=== PATIENT | female | born 1995 | race Caucasian/White ===

== ENCOUNTER 2016-12-05 20:10 | Emergency (ER) | payer BC ==
[2016-12-05] MEDS ORDERED: SODIUM CHLORIDE 0.9% 1,000 ML IV STA (20:44)
--- NOTE | 2016-12-05 20:57 | ED ---
General Adult HPI - General Chief complaint: Arrhythmia/Palpitations Stated complaint: Chest Pain Time Seen by Provider: 12/05/16 20:27 Source: patient, RN notes reviewed, old records reviewed Mode of arrival: wheelchair Limitations: no limitations - History of Present Illness Initial comments: This is a 21-year-old female the ER for evaluation of elevated heart rate. Patient has history of SVT, is on medication for heart rate. Verapamil. Patient has been taking medication as prescribed, recent history of anorexia or just decreased appetite. No nausea vomiting or diarrhea. No fevers. No significant medical history no recent drug use or abuse, no change in medications. At this time patient is asymptomatic. Patient did feel lightheaded and dizzy during episode. - Related Data Home Medications Medication Instructions Recorded Confirmed Medroxyprogesterone Acetate 150 mg IM Q90D 12/05/16 12/05/16 [Depo-Provera] Sertraline HCl [Zoloft] 25 mg PO DAILY 12/05/16 12/05/16 Verapamil [Isoptin] 40 mg PO BID 12/05/16 12/05/16 Allergies Allergy/AdvReac Type Severity Reaction Status Date / Time cefixime [From Suprax] Allergy Rash/Hives Verified 12/05/16 20:34 Review of Systems ROS Statement: Those systems with pertinent positive or pertinent negative responses have been documented in the HPI. ROS Other: All systems not noted in ROS Statement are negative. Past Medical History Past Medical History: No Reported History Additional Past Medical History / Comment(s): tachycardia History of Any Multi-Drug Resistant Organisms: None Reported Past Surgical History: No Surgical Hx Reported Past Anesthesia/Blood Transfusion Reactions: No Reported Reaction Past Psychological History: Anxiety Smoking Status: Never smoker Past Alcohol Use History: Rare Past Drug Use History: None Reported - Past Family History Mother Family Medical History: No Reported History Additional Family Medical History / Comment(s): Family history of depression General Exam Limitations: no limitations General appearance: alert, in no apparent distress, anxious Head exam: Present: atraumatic, normocephalic, normal inspection Eye exam: Present: normal appearance, PERRL, EOMI. Absent: scleral icterus, conjunctival injection, periorbital swelling ENT exam: Present: normal exam, mucous membranes moist Neck exam: Present: normal inspection. Absent: tenderness, meningismus, lymphadenopathy Respiratory exam: Present: normal lung sounds bilaterally. Absent: respiratory distress, wheezes, rales, rhonchi, stridor Cardiovascular Exam: Present: regular rate, normal rhythm, normal heart sounds. Absent: systolic murmur, diastolic murmur, rubs, gallop, clicks GI/Abdominal exam: Present: soft, normal bowel sounds. Absent: distended, tenderness, guarding, rebound, rigid Extremities exam: Present: normal inspection, full ROM, normal capillary refill. Absent: tenderness, pedal edema, joint swelling, calf tenderness Back exam: Present: normal inspection Neurological exam: Present: alert, oriented X3, CN II-XII intact Psychiatric exam: Present: normal affect, normal mood Skin exam: Present: warm, dry, intact, normal color. Absent: rash Course Vital Signs 12/05/16 20:17 Temperature 97.9 F Pulse Rate 95 Respiratory 18 Rate Blood Pressure 136/71 O2 Sat by Pulse 100 Oximetry - Reevaluation(s) Reevaluation #1: 12/05/16 22:12 Patient currently without abnormal heart rate or symptoms EKG Findings - EKG Comments: EKG Findings:: EKG shows normal rhythm rate of 72, AR 116, QRS 90, QTC 400 Medical Decision Making - Medical Decision Making 19 female here for evaluation of possible episode of SVT, patient is a symptomatically felt ER stay, will continue to take verapamil and follow-up with cardiology this week - Lab Data Result diagrams: 12/05/16 21:20 12/05/16 21:20 Lab Results 12/05/16 12/05/16 12/05/16 Range/Units 21:20 21:20 21:20 WBC 6.1 (3.8-10.6) k/uL RBC 5.08 (3.80-5.40) m/uL Hgb 14.2 (11.4-16.0) gm/dL Hct 43.8 (34.0-46.0) % MCV 86.2 (80.0-100.0) fL MCH 28.0 (25.0-35.0) pg MCHC 32.5 (31.0-37.0) g/dL RDW 12.9 (11.5-15.5) % Plt Count 244 (150-450) k/uL Neutrophils % 59 % Lymphocytes % 27 % Monocytes % 7 % Eosinophils % 4 % Basophils % 1 % Neutrophils # 3.6 (1.3-7.7) k/uL Lymphocytes # 1.7 (1.0-4.8) k/uL Monocytes # 0.4 (0-1.0) k/uL Eosinophils # 0.3 (0-0.7) k/uL Basophils # 0.0 (0-0.2) k/uL Sodium 144 (137-145) mmol/L Potassium 3.8 (3.5-5.1) mmol/L Chloride 104 (98-107) mmol/L Carbon Dioxide 25 (22-30) mmol/L Anion Gap 15 mmol/L BUN 14 (7-17) mg/dL Creatinine 0.73 (0.52-1.04) mg/dL Est GFR (MDRD) Af Amer >60 (>60 ml/min/1.73 sqM) Est GFR (MDRD) Non-Af >60 (>60 ml/min/1.73 sqM) Glucose 77 (74-99) mg/dL Calcium 9.6 (8.4-10.2) mg/dL Phosphorus 4.2 (2.5-4.5) mg/dL Magnesium 1.8 (1.6-2.3) mg/dL Total Bilirubin 0.6 (0.2-1.3) mg/dL AST 18 (14-36) U/L ALT 28 (9-52) U/L Alkaline Phosphatase 68 (38-126) U/L Total Protein 7.5 (6.3-8.2) g/dL Albumin 4.7 (3.5-5.0) g/dL Urine Color Urine Appearance (Clear) Urine pH (5.0-8.0) Ur Specific [place] (1.001-1.035) Urine Protein (Negative) Urine Glucose (UA) (Negative) Urine Ketones (Negative) Urine Blood (Negative) Urine Nitrate (Negative) Urine Bilirubin (Negative) Urine Urobilinogen (<2.0) mg/dL Ur Leukocyte Esterase (Negative) Urine HCG, Qual Not Detected (Not Detectd) 12/05/16 Range/Units 21:20 WBC (3.8-10.6) k/uL RBC (3.80-5.40) m/uL Hgb (11.4-16.0) gm/dL Hct (34.0-46.0) % MCV (80.0-100.0) fL MCH (25.0-35.0) pg MCHC (31.0-37.0) g/dL RDW (11.5-15.5) % Plt Count (150-450) k/uL Neutrophils % % Lymphocytes % % Monocytes % % Eosinophils % % Basophils % % Neutrophils # (1.3-7.7) k/uL Lymphocytes # (1.0-4.8) k/uL Monocytes # (0-1.0) k/uL Eosinophils # (0-0.7) k/uL Basophils # (0-0.2) k/uL Sodium (137-145) mmol/L Potassium (3.5-5.1) mmol/L Chloride (98-107) mmol/L Carbon Dioxide (22-30) mmol/L Anion Gap mmol/L BUN (7-17) mg/dL Creatinine (0.52-1.04) mg/dL Est GFR (MDRD) Af Amer (>60 ml/min/1.73 sqM) Est GFR (MDRD) Non-Af (>60 ml/min/1.73 sqM) Glucose (74-99) mg/dL Calcium (8.4-10.2) mg/dL Phosphorus (2.5-4.5) mg/dL Magnesium (1.6-2.3) mg/dL Total Bilirubin (0.2-1.3) mg/dL AST (14-36) U/L ALT (9-52) U/L Alkaline Phosphatase (38-126) U/L Total Protein (6.3-8.2) g/dL Albumin (3.5-5.0) g/dL Urine Color Light Yellow Urine Appearance Clear (Clear) Urine pH 6.0 (5.0-8.0) Ur Specific [place] 1.008 (1.001-1.035) Urine Protein Negative (Negative) Urine Glucose (UA) Negative (Negative) Urine Ketones Negative (Negative) Urine Blood Negative (Negative) Urine Nitrate Negative (Negative) Urine Bilirubin Negative (Negative) Urine Urobilinogen 2.0 (<2.0) mg/dL Ur Leukocyte Esterase Negative (Negative) Urine HCG, Qual (Not Detectd) Disposition Clinical Impression: Arrhythmia, Supraventricular tachycardia Disposition: HOME SELF-CARE Condition: Good Instructions: Supraventricular Tachycardia (ED) Referrals: Swati Key III, MD [Primary Care Provider] - 1-2 days
[2016-12-05 21:43] LABS: Basophils % (A) 1 %; CH 28.7; CHCM 33.4; Eosinophils # (A) 0.3 k/uL (0-0.7); Eosinophils % (A) 4 %; HCT 43.8 % (34.0-46.0); HDW 2.45; HGB 14.2 gm/dL (11.4-16.0); Luc # (Auto) 0.16; Luc % (Auto) 3; Lymphocytes # (A) 1.7 k/uL (1.0-4.8); Lymphocytes % (A) 27 %; MCHC 32.5 g/dL (31.0-37.0); MCV 86.2 fL (80.0-100.0); Monocytes # (A) 0.4 k/uL (0-1.0); Monocytes % (A) 7 %; Neutrophils # (A) 3.6 k/uL (1.3-7.7); Neutrophils % (A) 59 %; RBC 5.08 m/uL (3.80-5.40); RDW 12.9 % (11.5-15.5); WBC 6.1 k/uL (3.8-10.6); WBC (Perox) 6.29
[2016-12-05 21:44] LABS: Appearance,Urine Clear (Clear); Bilirubin,Urine Negative (Negative); Glucose,Urine (UA) Negative (Negative); Ketones,Urine Negative (Negative); Leukocyte Esterase,Urine Negative (Negative); Nitrite,Urine Negative (Negative); Protein,Urine Negative (Negative); Specific Gravity,Urine 1.008 (1.001-1.035); UA Billing (MACRO vs. MICRO) CHEM
[2016-12-05 21:52] LABS: ALT 28 U/L (9-52); AST 18 U/L (14-36); Alkaline Phosphatase 68 U/L (38-126); Anion Gap 15 mmol/L; Blood Urea Nitrogen 14 mg/dL (7-17); Calcium 9.6 mg/dL (8.4-10.2); Carbon Dioxide 25 mmol/L (22-30); Chloride 104 mmol/L (98-107); Glucose 77 mg/dL (74-99); Magnesium 1.8 mg/dL (1.6-2.3); Non-African American GFR(MDRD) >60 (>60 ml/min/1.73 sqM); Phosphorous 4.2 mg/dL (2.5-4.5); Potassium 3.8 mmol/L (3.5-5.1); Sodium 144 mmol/L (137-145); Total Bilirubin 0.6 mg/dL (0.2-1.3); Total Protein 7.5 g/dL (6.3-8.2)
[2016-12-05 22:08] LABS: Creatine Kinase 59 U/L (30-135)
[2016-12-05 22:20] LABS: Creatine Kinase MB 0.2 ng/mL (0.0-2.4); Troponin I <0.012 ng/mL (0.000-0.034)
[2016-12-05 22:34] VITALS: BP 114/60; PULSE 79; RESP 16; TEMP 98
== END 2016-12-05 22:37 | disposition home or self-care (01) ==
LOC: EC 20:10
DX: I47.1 Supraventricular tachycardia (principal); F41.9 Anxiety disorder, unspecified; Z79.899 Other long term (current) drug therapy; Z88.8 Allergy status to other drugs, medicaments and biological substances
CPT/HCPCS: 36415; 80053; 81003; 81025; 82550; 82553; 83735; 84100; 84443; 84484; 85025; 87086; 93005; 99285

== ENCOUNTER 2017-01-20 15:17 | Emergency (ER) | payer BC ==
[2017-01-20 16:13] VITALS: RESP 20
[2017-01-20] MEDS ORDERED: IBUPROFEN 600 MG TAB PO STA (16:19)
[2017-01-20] MEDS ORDERED: ACETAMINOPHEN TAB 500 MG TAB PO STA (16:19)
[2017-01-20] MEDS ORDERED: ACETAMINOPHEN ORAL SUSP 160 MG/5 ML CUP PO STA (16:40)
[2017-01-20 17:52] VITALS: BP 131/71; PULSE 120
--- NOTE | 2017-01-20 18:23 | ED ---
Fever HPI - General Chief Complaint: Fever Stated Complaint: Chest Pain,Flu Time Seen by Provider: 01/20/17 16:19 Source: patient, family Mode of arrival: wheelchair Limitations: no limitations - History of Present Illness Initial Comments: Patient is a 21-year-old female presenting with flulike symptoms. Daughter recently diagnosed with the flu. Patient complaining of cough, congestion, chest congestion, sore throat for the past day. Patient took aspirin at 11:00. Fever was subjective. Denies nausea, vomiting, diarrhea, abdominal pain. Denies dysuria. Denies neck stiffness. - Related Data Home Medications Medication Instructions Recorded Confirmed Medroxyprogesterone Acetate 150 mg IM Q90D 12/05/16 01/20/17 [Depo-Provera] Previous Rx's Medication Instructions Recorded Oseltamivir [Tamiflu] 75 mg PO Q12HR #10 cap 01/20/17 Allergies Allergy/AdvReac Type Severity Reaction Status Date / Time cefixime [From Suprax] Allergy Rash/Hives Verified 01/20/17 16:28 Review of Systems ROS Statement: Those systems with pertinent positive or pertinent negative responses have been documented in the HPI. Constitutional: +fever and no chills. HENT: +congestion, no rhinorrhea and +sore throat. Eyes: No discharge and no redness. Respiratory: +cough and no shortness of breath. Cardiovascular: No chest pain and no palpitations. Gastrointestinal: No nausea, no vomiting, no abdominal pain and no diarrhea. Genitourinary: No dysuria and no hematuria. Musculoskeletal: No back pain and + myalgias. Skin: No pallor and no rash. Neurological: No dizziness and No headaches. ROS Other: All systems not noted in ROS Statement are negative. Past Medical History Past Medical History: No Reported History Additional Past Medical History / Comment(s): tachycardia History of Any Multi-Drug Resistant Organisms: None Reported Past Surgical History: No Surgical Hx Reported Past Anesthesia/Blood Transfusion Reactions: No Reported Reaction Past Psychological History: Anxiety Smoking Status: Never smoker Past Alcohol Use History: Rare Past Drug Use History: None Reported - Past Family History Mother Family Medical History: No Reported History Additional Family Medical History / Comment(s): Family history of depression General Exam - General Exam Comments Initial Comments: Constitutional: Patient appears well-developed and well-nourished. Mild distress and warm to touch. Head: Normocephalic and atraumatic. Eyes: Conjunctivae and EOM are normal. Right eye exhibits no discharge. Left eye exhibits no discharge. No scleral icterus. Ears: Bilateral erythematous TMs with normal landmarks Throat: Erythematous without tonsillar exudates Neck: Neck supple. No rigidity. Full range of motion Cardiovascular: Tachycardic with history of tachycardia. No murmur heard. Pulmonary/Chest: Effort normal and breath sounds normal. No respiratory distress. No wheezes. Abdominal: Soft. No distension. There is no tenderness. There is no rebound and no guarding. Musculoskeletal: Normal range of motion. No edema or tenderness. Neurological: Patient alert and oriented to person, place, and time. Skin: Skin is warm and dry. Not diaphoretic. Nursing notes and vitals reviewed. Limitations: no limitations Course Vital Signs 01/20/17 01/20/17 01/20/17 16:08 17:40 18:35 Temperature 105.7 F H 102.6 F H 101.1 F H Pulse Rate 129 H 120 H Respiratory 20 20 Rate Blood Pressure 145/81 131/71 O2 Sat by Pulse 99 Oximetry - Reevaluation(s) Reevaluation #1: Patient presented with a fever of 105F and exposure of the flu for which she was given Tylenol and Motrin. Fever progressively came down. Patient well- appearing and updated on influenza A positive Medical Decision Making - Medical Decision Making Patient is a 21-year-old female presenting with fever and exposure to the flu. Patient febrile here for which she was given Tylenol Motrin. Fever came down. Influenza A positive. Patient will be treated with Tamiflu. Prior to discharge , patient was resting comfortably in bed. Course of stay improved. Fever improved. Pain improved. Discussed physical exam and diagnostic tests with patient. Questions answered and patient is agreeable to discharge with close follow up with Primary Care Physician. Instructed to return to Emergency Department if symptoms worsen. - Lab Data Lab Results 01/20/17 Range/Units 16:36 Influenza Type A RNA Detected H (Not Detectd) Influenza Type B (PCR) Not Detected (Not Detectd) Disposition Clinical Impression: Influenza A Disposition: HOME SELF-CARE Condition: Good Instructions: Fever in Adults (ED), Influenza (ED) Prescriptions: Oseltamivir [Tamiflu] 75 mg PO Q12HR #10 cap Referrals: Swati Key III, MD [Primary Care Provider] - 1-2 days
[2017-01-20 18:36] VITALS: TEMP 101.1
== END 2017-01-20 18:36 | disposition home or self-care (01) ==
LOC: EC 15:17
DX: J09.X2 Influenza due to identified novel influenza A virus with other respiratory manifestations (principal); Z88.1 Allergy status to other antibiotic agents
CPT/HCPCS: 87502; 99283

== ENCOUNTER 2017-03-28 06:21 | Day surgery (SDC) | payer BC ==
[2017-03-26 14:47] VITALS: BMI 22.3
[2017-03-28] MEDS ORDERED: SODIUM CHLORIDE 0.9% 1,000 ML IV SCH (06:27)
[2017-03-28 06:56] LABS: Basophils % (A) 0 %; CH 29.3; CHCM 33.8; Eosinophils # (A) 0.4 k/uL (0-0.7); Eosinophils % (A) 6 %; HCT 42.2 % (34.0-46.0); HGB 14.2 gm/dL (11.4-16.0); Luc # (Auto) 0.17; Luc % (Auto) 3; Lymphocytes % (A) 16 %; MCH 29.2 pg (25.0-35.0); MCHC 33.6 g/dL (31.0-37.0); MCV 87.1 fL (80.0-100.0); Mean Platelet Volume 6.5; Monocytes # (A) 0.4 k/uL (0-1.0); Monocytes % (A) 6 %; Neutrophils # (A) 4.2 k/uL (1.3-7.7); Neutrophils % (A) 69 %; RBC 4.84 m/uL (3.80-5.40); RDW 13.2 % (11.5-15.5); WBC 6.1 k/uL (3.8-10.6); WBC (Perox) 6.07
[2017-03-28 07:06] LABS: Anion Gap 12 mmol/L; Blood Urea Nitrogen 12 mg/dL (7-17); Calcium 9.2 mg/dL (8.4-10.2); Carbon Dioxide 20 mmol/L (22-30); Chloride 110 mmol/L (98-107); Glucose 93 mg/dL (74-99); Non-African American GFR(MDRD) >60 (>60 ml/min/1.73 sqM); Potassium 3.9 mmol/L (3.5-5.1); Sodium 142 mmol/L (137-145)
[2017-03-28] MEDS ORDERED: IV FLUID CONTINUATION 1,000 ML IV ONE (07:22)
[2017-03-28] MEDS ORDERED: PHENYLEPHRINE-0.9% NACL SYG 1 MG/10 ML SYRINGE ONE (07:22)
[2017-03-28] MEDS ORDERED: ONDANSETRON 4 MG/2 ML VIAL ONE (07:22)
[2017-03-28] MEDS ORDERED: WATER FOR INJECTION, STERILE 10 ML VIAL IV ONE (07:22)
[2017-03-28] MEDS ORDERED: fentaNYL (PF) 50 MCG/ML 2 ML AMP ONE (07:22)
[2017-03-28] MEDS ORDERED: diphenhydrAMINE 50 MG/ML 1 ML VIAL ONE (07:22)
[2017-03-28] MEDS ORDERED: MIDAZOLAM 2 MG/2 ML VIAL ONE (07:22)
[2017-03-28] MEDS ORDERED: DEXAMETHASONE SOD PHOSPHATE 10 MG/ML 1 ML VIAL ONE (07:22)
[2017-03-28] MEDS ORDERED: PROPOFOL 10 MG/ML 20 ML VIAL IV ONE (07:22)
[2017-03-28] MEDS ORDERED: HYDROmorphone (PF) 1 MG/ML ONE (07:22)
[2017-03-28] MEDS ORDERED: ISOPROTERENOL 250 MCG/1.25 ML SYR IV ONE (07:22)
[2017-03-28] MEDS ORDERED: IODIXANOL 320 MG/ML 100 ML IV ONE (08:13)
[2017-03-28] MEDS ORDERED: LIDOCAINE 2% INJ 20 MG/ML SQ ONE ×2 (08:20→08:21)
[2017-03-28] MEDS ORDERED: ACETAMINOPHEN IV (For NPO) 1,000 MG in EMPTY BAG 1 BAG IVPB ONE (09:57)
[2017-03-28] MEDS ORDERED: ACETAMINOPHEN TAB 325 MG TAB PO PRN (09:57)
--- NOTE | 2017-03-28 10:51 | CE ---
DATE OF SERVICE: Caitlin Menendez is a 21-year-old female who complains of recurrent dizziness ( ) palpitations. She feels warm, nauseous and sweaty at this time. She did not respond to Verapamil and therefore was brought to the EP lab for a diagnostic EP study and possible radiofrequency ablation for SVT. SVT has been documented in the past (sinus tachycardia versus atrial tachycardia). Patient brought to the EP lab in a fasting state. Written informed consent was obtained prior to the procedure. The left and right groins were prepped and draped as per protocol. Four venous sheaths were placed, two on each side. Diagnostic catheters were placed in the right heart (atrial catheter, HIS bundle catheter, RV catheter and coronary sinus catheter). The sinus cycle length was ( ) ms, AK interval was 129 ms, QRS 104 ms, QT 408 ms, AH interval 41 ms, HP 35 ms. Sinus node recovery times at 600, 500, and 400 ms were 929, 1025 and 988 ms corresponding sinus node recovery times within normal limits. AV node Wenckebach block 360 ms, VA Wenckebach block 420 ms. The ventricular extrastimulation was performed in ( ). Extrastimulation is performed at the high right atrium, coronary sinus and the right ventricle and there is no evidence SVT, AV node Wenckebach block was 380 ms with coronary sinus pacing, Isuprel was given wide open and then at 2 mcg, AV node Wenckebach block noted at 220 ms, VA Wenckebach block at 260 ms, AV node ERP 400/less than 180 and VA ERP 360/less than 180 and for the coronary sinus 360/less than 180. No slow pathway conduction, no evidence of excessive pathway conduction, no SVT induced. Double extrastimuli from the coronary sinus, high right atrium and the ventricle performed. No SVT was induced. There are occasional single echo beats but no sustained SVT was induced, even nonsustained SVT was not noted. Burst stimulation was performed from all 3 sites and no arrhythmia was induced, right bundle aberrancy was noted with atrial pacing on Isuprel. Isuprel was stopped and atrial ventricular extrastimulation continued and also from the coronary sinus. From the coronary sinus, single echo beats are noted with extrastimuli but no SVT and no nonsustained SVT noted. No atrial tachycardia was induced. All catheters were removed at the end of the procedure. IMPRESSION: Diagnostic EP study reveals normal sinus function, normal atrioventricular node function and absence of any excessive pathway conduction. Slow pathway conduction noted with extrastimulation during Isuprel recovery, but only single echo beats were noted. No sustained SVT induced, no ventricular arrhythmias induced. No nonsustained VT induced. 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 SUGGEST: Stop verapamil, increase fluid and salt intake, induce strengthening training of the lower extremities and consider a therapeutic trial with Florinef 0.1 mg p.o. daily for 3 months and reassess thereafter.
--- NOTE | 2017-03-28 11:00 | LTR ---
March 28, 2017 RE: Caitlin Menendez N Dear Rocael; I had the pleasure of seeing Caitlin Menendez in electrophysiology followup. Caitlin underwent a diagnostic EP study, which did not reveal any sustained arrhythmias. In her history, she stated that she feels dizzy and feels that her heart starts to race and at that time becomes nauseous and when she throws up, the episodes stop. However, I could not find any AV node dependent SVT nor any other atrial tachycardia. It is quite likely that she is having vasovagal presyncope and she feels the preceding sinus tachycardia. Therefore, I would suggest a therapeutic trial of Florinef for 3 months to see if her condition improves, in addition to increasing fluid and salt intake and strength training of the lower extremities. Thank you for entrusting me with the care of your patient. Warm regards. Sincerely, REBEL KILGORE MD
[2017-03-28] MEDS: FLUDROCORTISONE 0.1 MG TAB PO SCH (20:32)
--- NOTE | 2017-03-29 08:04 | P.DS ---
Providers Attending physician: Dexter Enrique Primary care physician: [facility] Course: Patient is doing well post EP study Groin is healed well no hematoma no tenderness Heart sounds are normal Breath sounds are normal Blood pressures are normal normal respirations afebrile normal heart rate no arrhythmias Impression Recurrent symptoms of palpitations associated with nausea and sweating Tilt table test last year which showed normal heart rate and blood pressure response to upright tilting Diagnostic EP study which showed normal sinus node function, normal AV node function, no accessory pathway conduction. Slow pathway conduction was noted but only single echo beats were induced with Isuprel recovery No SVT inducible No atrial tachycardia inducible No ventricular tachycardia either sustained or nonsustained inducible We have documented sinus tachycardia and Nonsustained VT during monitoring, in the past Her symptoms are suggestive of mild vasovagal phenomena without any significant drop in blood pressure. She complains of a pounding and palpitation in her heart nauseous sweating. I would treat her with Florinef 0.1 mg by mouth daily for 3 months. She will increase her fluid and salt intake and strength and her lower extremity muscles, resistance training and weight training However we also documented an episode of nonsustained VT that may not be related to her symptoms Most importantly I reviewed all her twelve-lead ECGs This morning her twelve-lead ECG shows a terminal deflection in the QRS in lead V1 Looking back in all her twelve-lead ECGs this finding is consistent in lead V1 There is very subtle evidence of this in lead V2 and may be in lead V6 and one of the ECGs but the finding in lead V1 is very consistent and appears as a sharp artifact at the very end of the QRS in V1 Suggest Exercise stress test to maximum capacity in view of this ECG finding and the documentation of nonsustained ventricular tachycardia I will perform this test in a few weeks once a groin heals up Consider cardiac MRI to evaluate the right ventricle to look for right ventricular myocardial abnormalities Patient Condition at Discharge: Stable Plan - Discharge Summary New Discharge Prescriptions: Fludrocortisone [Florinef] 0.1 mg PO DAILY #1 tablet Discharge Medication List Medroxyprogesterone Acetate [Depo-Provera] 150 mg IM Q90D 12/05/16 [History] ALPRAZolam [Xanax] 0.25 mg PO DAILY PRN 03/26/17 [History] Fludrocortisone [Florinef] 0.1 mg PO DAILY #1 tablet 03/28/17 [Rx] Activity/Diet/Wound Care/Special Instructions: Post EP study - Ablation instructions 1. Keep access sites dry for 2 days. 2. No heavy lifting or straining for 2 days. 3. Avoid bending the hips repeatedly for 2 days. 4. You may go up and down stairs slowly Call if the following is noted 1. Bleeding, increasing swelling or pain at the access sites. 2. Increasing chest discomfort, especially upon taking a deep breath. 3. Increasing shortness of breath, at rest or with exertion. 4. Undue cough / phlegm 5. Difficulty or pain while swallowing. 6. Pain or change in color in the extremities. 7. Fever, chills, rigors. 8. Increasing headache or neurologic symptoms. 9. Dizziness, fainting, palpitations Discharge Disposition: HOME SELF-CARE
--- NOTE | 2017-03-29 08:08 | P.PN ---
Progress Note - Text Patient is doing well post EP study Groin is healed well no hematoma no tenderness Heart sounds are normal Breath sounds are normal Blood pressures are normal normal respirations afebrile normal heart rate no arrhythmias Impression Recurrent symptoms of palpitations associated with nausea and sweating Tilt table test last year which showed normal heart rate and blood pressure response to upright tilting Diagnostic EP study which showed normal sinus node function, normal AV node function, no accessory pathway conduction. Slow pathway conduction was noted but only single echo beats were induced with Isuprel recovery No SVT inducible No atrial tachycardia inducible No ventricular tachycardia either sustained or nonsustained inducible We have documented sinus tachycardia and Nonsustained VT during monitoring, in the past Her symptoms are suggestive of mild vasovagal phenomena without any significant drop in blood pressure. She complains of a pounding and palpitation in her heart nauseous sweating. I will start Florinef 0.1 mg by mouth daily for 3 months, increase fluid and salt intake, regular meals, resistance training and strength training of the lower extremities. Review in 3 months However we also documented an episode of nonsustained VT that may not be related to her symptoms Most importantly I reviewed all her twelve-lead ECGs This morning her twelve-lead ECG shows a terminal deflection in the QRS in lead V1 Looking back in all her twelve-lead ECGs this finding is consistent in lead V1 There is very subtle evidence of this in lead V2 and may be in lead V6 and one of the ECGs but the finding in lead V1 is very consistent and appears as a sharp artifact at the very end of the QRS in V1 Suggest Exercise stress test to maximum capacity in view of this ECG finding and the documentation of nonsustained ventricular tachycardia I will perform this test in a few weeks once a groin heals up Consider cardiac MRI to evaluate the right ventricle to look for right ventricular myocardial abnormalities
[2017-03-29] MEDS: FLUDROCORTISONE 0.1 MG TAB PO SCH (08:26)
[2017-03-29 08:37] VITALS: BP 123/71; PULSE 69; RESP 16; TEMP 97.7
== END 2017-03-29 11:50 | disposition home or self-care (01) ==
LOC: CATHEP 06:21 → 3OBS 09:57 → CATHEP 03-29 11:50
PROVIDERS: ATTEND Internal Medicine Clinical Cardiac Electrophysiology
DX: I47.1 Supraventricular tachycardia (principal); I49.9 Cardiac arrhythmia, unspecified; R55 Syncope and collapse; R00.2 Palpitations; I47.2 Ventricular tachycardia; Z79.899 Other long term (current) drug therapy
CPT/HCPCS: 93623; 93620; 84439; 80048; 84443; 82533; 85025; 81025; C1894; C1769 ×2; C1730 ×4; J2001; J2250; J1200; J1100; Q9967; J2405; J3010; J1170; J2370; J2704

== ENCOUNTER 2017-04-20 18:24 | Emergency (ER) | payer BC ==
[2017-04-20 18:34] VITALS: BP 130/58; PULSE 91; RESP 16; TEMP 97.7
[2017-04-20] MEDS ORDERED: IBUPROFEN 600 MG TAB PO STA (18:44)
--- NOTE | 2017-04-20 18:47 | ED ---
Upper Extremity HPI - General Chief Complaint: Extremity Injury, Upper Stated Complaint: hand pain Time Seen by Provider: 04/20/17 18:43 Source: patient, RN notes reviewed Mode of arrival: ambulatory Limitations: no limitations - History of Present Illness Initial Comments: 21-year-old female presents to the emergency department with a chief complaint of right hand pain. Patient states that she was swinging at a ball in the ball hit the bat oddly and now she has pain around her right thumb. Patient has noticed some bruising. Patient states it hurts to clench and release the right hand. Patient states that she hasn't had any other symptoms with this. Patient denies the past. Patient denies any recent fever, chills, shortness of breath, chest pain, back pain, abdominal pain, nausea vomiting, numbness or tingling, dysuria or hematuria, constipation or diarrhea, headaches or visual changes, or any other current symptoms. - Related Data Home Medications Medication Instructions Recorded Confirmed Medroxyprogesterone Acetate 150 mg IM Q90D 12/05/16 04/20/17 [Depo-Provera] ALPRAZolam [Xanax] 0.25 mg PO DAILY PRN 03/26/17 04/20/17 Previous Rx's Medication Instructions Recorded Fludrocortisone [Florinef] 0.1 mg PO DAILY #1 tablet 03/28/17 Allergies Allergy/AdvReac Type Severity Reaction Status Date / Time cefixime [From Suprax] Allergy Rash/Hives Verified 04/20/17 19:02 Review of Systems ROS Statement: Those systems with pertinent positive or pertinent negative responses have been documented in the HPI. ROS Other: All systems not noted in ROS Statement are negative. Past Medical History Past Medical History: No Reported History Additional Past Medical History / Comment(s): tachycardia History of Any Multi-Drug Resistant Organisms: None Reported Past Surgical History: No Surgical Hx Reported Past Anesthesia/Blood Transfusion Reactions: No Reported Reaction Past Psychological History: Anxiety Smoking Status: Never smoker Past Alcohol Use History: Rare Past Drug Use History: None Reported - Past Family History Father Family Medical History: No Reported History Mother Family Medical History: No Reported History Additional Family Medical History / Comment(s): anxiet,depression,bone spurs to back General Exam - General Exam Comments Initial Comments: General: The patient is awake and alert, in no distress, and does not appear acutely ill. Neck: The neck is supple, there is no tenderness. Cardiovascular: There is a regular rate and rhythm. No murmur, rub or gallop is appreciated. Respiratory: Lungs are clear to auscultation, respirations are non-labored, breath sounds are equal. No wheezes, stridor, rales, or rhonchi. Musculoskeletal: Sensation intact with 2+ pulses of her right upper extremity. Vital motion of right wrist and right hand. Patient does appear to have ecchymosis surrounding the first digit and tenderness to the palmar aspect of the hand. No anatomical snuffbox tenderness. Patient does have weakness to the hand due to pain. Neurological: CN II-XII intact, There are no obvious motor or sensory deficits. Coordination appears grossly intact. Speech is normal. Skin: Skin is warm and dry and no rashes or lesions are noted. Psychiatric: Normal mood and affect. Limitations: no limitations Course Vital Signs 04/20/17 18:31 Temperature 97.7 F Pulse Rate 91 Respiratory 16 Rate Blood Pressure 130/58 O2 Sat by Pulse 100 Oximetry Medical Decision Making - Medical Decision Making 19-year-old female presents emergency department with a right hand pain. This patient appears to have a right hand contusion due to the duration of that. This time x-rays reviewed and shows no acute process. We discussed. Tylenol ice for pain. We discussed return parameters and follow-up. Patient stated that she understood all questions have been answered. She will be discharged home. - Radiology Data Radiology results: image reviewed Interpreted by me: Interpreted by me: Right hand xray: 3 view, no fracture, no dislocation, no bony lesions, no foreign bodies, no soft tissue damage. Waiting official radiology read. Disposition Clinical Impression: Contusion of right hand Disposition: HOME SELF-CARE Condition: Stable Instructions: Contusion in Adults (ED) Additional Instructions: Please use medication as discussed. Please follow up with family doctor if symptoms have not improved over the next two days. Please return to the emergency room if your symptoms increase or worsen or for any other concerns. Referrals: Swati Key III, MD [Primary Care Provider] - 1-2 days Time of Disposition: 19:09
--- NOTE | 2017-04-20 19:23 | XR ---
EXAMINATION TYPE: XR hand complete RT DATE OF EXAM: 04/20/2017 7:06 PM COMPARISON: 03/03/2013 HISTORY: 21-year-old female pain after sports injury TECHNIQUE: 3 views FINDINGS: Joint spaces throughout the hand are preserved without acute fracture, subluxation, or dislocation. IMPRESSION: No acute osseous abnormality seen.
== END 2017-04-20 19:16 | disposition home or self-care (01) ==
LOC: EC 18:24
DX: S60.221A Contusion of right hand, initial encounter (principal); S60.022A Contusion of left index finger without damage to nail, initial encounter; Z79.3 Long term (current) use of hormonal contraceptives; Z88.1 Allergy status to other antibiotic agents; X58.XXXA Exposure to other specified factors, initial encounter; Y93.89 Activity, other specified; Y92.39 Other specified sports and athletic area as the place of occurrence of the external cause
CPT/HCPCS: 99283

== ENCOUNTER 2018-09-14 11:12 | Emergency (ER) | payer BC ==
[2018-09-14 11:33] VITALS: TEMP 98.8
--- NOTE | 2018-09-14 12:16 | ED ---
Abdominal Pain HPI - General Chief Complaint: Abdominal Pain Stated Complaint: flank pain Time Seen by Provider: 09/14/18 11:37 Source: patient, RN notes reviewed Mode of arrival: ambulatory Limitations: no limitations - History of Present Illness Initial Comments: 22-year-old female presents emergency Department chief complaint of dysuria. Patient states is present for last few days. Patient states she had recurrent urinary tract infections and feels very similar she states that normally she can just hydrate, take [id number] Azo and symptoms resolved though she states not. Patient states she has some achiness in her back has had no fever or chills. Patient states she has no localized pain in her back. Patient denies any vomiting has been slightly nauseated denies any chance . Denies any vaginal bleeding or vaginal discharge. - Related Data Home Medications Medication Instructions Recorded Confirmed Cetirizine HCl [Zyrtec] 10 mg PO HS 09/14/18 09/14/18 Allergies Allergy/AdvReac Type Severity Reaction Status Date / Time cefixime [From Suprax] Allergy Rash/Hives Verified 09/14/18 12:04 Review of Systems ROS Statement: Those systems with pertinent positive or pertinent negative responses have been documented in the HPI. ROS Other: All systems not noted in ROS Statement are negative. Past Medical History Past Medical History: No Reported History Additional Past Medical History / Comment(s): tachycardia History of Any Multi-Drug Resistant Organisms: None Reported Past Surgical History: Ablation Past Anesthesia/Blood Transfusion Reactions: No Reported Reaction Past Psychological History: Anxiety Smoking Status: Never smoker Past Alcohol Use History: Rare Past Drug Use History: None Reported - Past Family History Father Family Medical History: No Reported History Mother Family Medical History: No Reported History Additional Family Medical History / Comment(s): anxiet,depression,bone spurs to back General Exam Limitations: no limitations General appearance: alert, in no apparent distress Head exam: Present: atraumatic, normocephalic, normal inspection Eye exam: Present: normal appearance, PERRL, EOMI. Absent: scleral icterus, conjunctival injection, periorbital swelling Neck exam: Present: normal inspection. Absent: tenderness, meningismus, lymphadenopathy Respiratory exam: Present: normal lung sounds bilaterally. Absent: respiratory distress, wheezes, rales, rhonchi, stridor Cardiovascular Exam: Present: regular rate, normal rhythm, normal heart sounds. Absent: systolic murmur, diastolic murmur, rubs, gallop, clicks GI/Abdominal exam: Present: soft, tenderness (Mild suprapubic), normal bowel sounds. Absent: distended, guarding, rebound, rigid Back exam: Present: CVA tenderness (R) (Minimal), CVA tenderness (L) (Minimal) Neurological exam: Present: alert, oriented X3, CN II-XII intact Skin exam: Present: warm, dry, intact, normal color. Absent: rash Course Vital Signs 09/14/18 11:29 Temperature 98.8 F Pulse Rate 83 Respiratory 18 Rate Blood Pressure 114/68 O2 Sat by Pulse 98 Oximetry Medical Decision Making - Medical Decision Making 22-year-old female presented from for dysuria. Patient has urinary tract infection will be started on ciprofloxacin for 7 days. Patient urine was cultured. Return parameters were discussed. - Lab Data Lab Results 09/14/18 09/14/18 Range/Units 11:50 11:50 Urine Color Dark [place] Urine Appearance Cloudy H (Clear) Urine RBC 12 H (0-5) /hpf Urine WBC >182 H (0-5) /hpf Urine WBC Clumps Occasional H (None) /hpf Ur Squamous Epith Cells 1 (0-4) /hpf Urine Bacteria Moderate H (None) /hpf Urine Mucus Rare H (None) /hpf Urine HCG, Qual Not Detected (Not Detectd) Disposition Clinical Impression: UTI (urinary tract infection) Disposition: HOME SELF-CARE Condition: Stable Instructions: Urinary Tract Infection in Women (DC) Additional Instructions: Please return to the Emergency Department if symptoms worsen or any other concerns. Is patient prescribed a controlled substance at d/c from ED?: No Referrals: Abraham Juan MD [Primary Care Provider] - 1-2 days Time of Disposition: 13:03
[2018-09-14 12:38] LABS: Bacteria,Urine Moderate /hpf; Mucus,Urine Rare /hpf; RBC,Urine 12 /hpf (0-5); Squamous Epithelial Cell,Urine 1 /hpf (0-4); WBC,Urine >182 /hpf (0-5)
[2018-09-14 12:39] LABS: Appearance,Urine Cloudy (Clear); Color,Urine Dark Orange
[2018-09-14] MEDS ORDERED: CIPROFLOXACIN HCL 500 MG TAB PO STA (13:01)
[2018-09-14 13:15] VITALS: BP 106/70; PULSE 70; RESP 16
== END 2018-09-14 13:15 | disposition home or self-care (01) ==
LOC: EC 11:12
DX: N39.0 Urinary tract infection, site not specified (principal); Z79.899 Other long term (current) drug therapy; Z88.1 Allergy status to other antibiotic agents
CPT/HCPCS: 81001; 81025; 87086; 99284

== ENCOUNTER 2018-09-29 02:00 | Emergency (ER) | payer BC ==
[2018-09-29 02:06] VITALS: TEMP 98.6
[2018-09-29] MEDS ORDERED: ONDANSETRON 4 MG/2 ML VIAL IVP STA (02:47)
[2018-09-29] MEDS ORDERED: KETOROLAC 30 MG/ML 1 ML VIAL IVP STA (02:47)
--- NOTE | 2018-09-29 02:48 | ED ---
Chest Pain HPI - General Source: patient Mode of arrival: ambulatory Limitations: no limitations <Joselyn Felipe - Last Filed: 09/29/18 04:53> <Aida Novoa - Last Filed: 09/29/18 06:09> - General Chief Complaint: Chest Pain Stated Complaint: Chest Pain Time Seen by Provider: 09/29/18 02:22 - History of Present Illness Initial Comments: 22-year-old female patient presents to the emergency department today for complaints of left-sided chest pain that radiates into her shoulder, her left upper back and down her left arm. Patient states this started Saturday morning and has been progressively worsening. She is having associated shortness of breath, dizziness, palpitations, and nausea. States it hurts worse with movement, talking, coughing, or deep breathing. Patient states that she does have history of tachycardia for which she underwent cardiac ablation 2 years ago. States that she is coughing without any sputum production. Patient states that she has felt feverish and has had chills but has not documented any temperature at home. She denies any sore throat or nasal congestion. States that she has had some clear nasal drainage. She denies any injury or new physical activities. Patient denies any recent rash, abdominal pain, vomiting, diarrhea, constipation, numbness, tingling, hematuria, dysuria, urinary urgency , urinary frequency, headache, visual changes, or any other complaints. She reports a chance of . (Joselyn Felipe) - Related Data Home Medications Medication Instructions Recorded Confirmed Cetirizine HCl [Zyrtec] 10 mg PO HS 09/14/18 09/29/18 PARoxetine [Paxil] 1 tab PO DAILY 09/29/18 09/29/18 Previous Rx's Medication Instructions Recorded Ibuprofen [Motrin] 600 mg PO Q8HR PRN #30 tab 09/29/18 predniSONE 50 mg PO DAILY #5 tablet 09/29/18 Allergies Allergy/AdvReac Type Severity Reaction Status Date / Time cefixime [From Suprax] Allergy Rash/Hives Verified 09/29/18 02:06 Review of Systems ROS Other: All systems not noted in ROS Statement are negative. <Joselyn Felipe - Last Filed: 09/29/18 04:53> ROS Other: All systems not noted in ROS Statement are negative. <Aida Novoa - Last Filed: 09/29/18 06:09> ROS Statement: Those systems with pertinent positive or pertinent negative responses have been documented in the HPI. EKG Findings - EKG Comments: EKG Findings:: EKG obtained at 0218 shows normal sinus rhythm with a sinus arrhythmia, incomplete right bundle branch block, ventricular rate is 72, ME interval 118, QRS duration 94, QT 400, QTC 438. No evidence of ST elevation or depression. <Joselyn Felipe M - Last Filed: 09/29/18 04:53> Past Medical History Past Medical History: No Reported History Additional Past Medical History / Comment(s): tachycardia History of Any Multi-Drug Resistant Organisms: None Reported Past Surgical History: Ablation Past Anesthesia/Blood Transfusion Reactions: No Reported Reaction Past Psychological History: Anxiety Smoking Status: Never smoker Past Alcohol Use History: Rare Past Drug Use History: None Reported - Past Family History Father Family Medical History: No Reported History Mother Family Medical History: No Reported History Additional Family Medical History / Comment(s): anxiet,depression,bone spurs to back <Joselyn Felipe M - Last Filed: 09/29/18 04:53> General Exam Limitations: no limitations General appearance: alert, in no apparent distress, other (This is a well- developed, well-nourished adult female patient in no acute distress. Vital signs upon presentation are temperature 98.6F, pulse 80, respirations 18, blood pressure 129/96, pulse ox 99% on room air.) Eye exam: Present: normal appearance, PERRL, EOMI. Absent: scleral icterus, conjunctival injection, periorbital swelling ENT exam: Present: normal exam, normal oropharynx, mucous membranes moist Respiratory exam: Present: normal lung sounds bilaterally. Absent: respiratory distress, wheezes, rales, rhonchi, stridor Cardiovascular Exam: Present: regular rate, normal rhythm, normal heart sounds. Absent: systolic murmur, diastolic murmur, rubs, gallop, clicks GI/Abdominal exam: Present: soft, normal bowel sounds. Absent: distended, tenderness, guarding, rebound, rigid Neurological exam: Present: alert, oriented X3, CN II-XII intact Psychiatric exam: Present: normal affect, normal mood Skin exam: Present: warm, dry, intact, normal color. Absent: rash <Joselyn Felipe - Last Filed: 09/29/18 04:53> Vital Signs 09/29/18 09/29/18 09/29/18 02:04 02:40 02:50 Temperature 98.6 F Pulse Rate 80 65 70 Respiratory 18 16 16 Rate Blood Pressure 129/96 123/89 139/96 O2 Sat by Pulse 99 97 98 Oximetry 09/29/18 09/29/18 09/29/18 03:30 04:00 04:21 Temperature Pulse Rate 59 L 70 76 Respiratory 16 16 16 Rate Blood Pressure 121/87 114/85 129/61 O2 Sat by Pulse 97 100 99 Oximetry Chest Pain MDM <Joselyn Felipe - Last Filed: 09/29/18 04:53> <Aida Novoa - Last Filed: 09/29/18 06:09> - MDM 22-year-old female patient presents the emergency department today for complaints of left upper chest pain beneath her clavicle, left shoulder pain radiating down the left arm and into her neck. Physical examination did reveal the pain is reproducible upon palpation to the left clavicle, left shoulder. Lungs are clear to auscultation with good air movement. EKG showed normal sinus rhythm with an incomplete right bundle branch block. Chest x-ray showed no acute cardio pulmonary process. Labs are unremarkable. Patient is not . D-dimer was negative. Did discuss findings and results with the patient, we did discuss that her pain is most likely musculoskeletal in nature, possibly costochondritis. She'll be given anti-inflammatory pain medication. She is instructed to follow-up with her primary care physician for recheck in 1- 2 days. Return parameters were discussed in detail. She verbalizes understanding and agrees with this plan. RADIOLOGY: Two-view x-ray of the chest is obtained. Heart mediastinum are normal. Depression by Dr. Unger shows no acute cardiopulmonary process. (Joselyn Felipe) I was available for consultation in the emergency department. The history and physical exam were done by the midlevel provider. I was consulted for this patient's care. I reviewed the case with the midlevel provider and based on their presentation of the patient, I agree with the assessment, medical decision making and plan of care as documented. (Aida Novoa) Disposition Is patient prescribed a controlled substance at d/c from ED?: No Time of Disposition: 04:11 <Joselyn Felipe M - Last Filed: 09/29/18 04:53> <Aida Novoa P - Last Filed: 09/29/18 06:09> Clinical Impression: Chest pain, Shortness of breath Disposition: HOME SELF-CARE Condition: Good Instructions: Chest Pain (ED), Shortness of Breath (ED) Additional Instructions: Take medications as directed. Follow-up with your primary care physician for recheck in 1-2 days. Return here immediately for any new, worsening, or concerning symptoms. Prescriptions: Ibuprofen [Motrin] 600 mg PO Q8HR PRN #30 tab PRN Reason: Pain predniSONE 50 mg PO DAILY #5 tablet Referrals: Abraham Juan MD [Primary Care Provider] - 1-2 days
[2018-09-29 03:00] LABS: Appearance,Urine Clear (Clear); Bilirubin,Urine Negative (Negative); Blood,Urine Negative (Negative); Color,Urine Light Yellow; Glucose,Urine (UA) Negative (Negative); Ketones,Urine Negative (Negative); Leukocyte Esterase,Urine Negative (Negative); Nitrite,Urine Negative (Negative); Protein,Urine Negative (Negative); Specific Gravity,Urine 1.007 (1.001-1.035); Urobilinogen,Urine <2.0 mg/dL (<2.0)
[2018-09-29 03:06] LABS: Basophils % (A) 0 %; Eosinophils # (A) 0.6 k/uL (0-0.7); Eosinophils % (A) 9 %; HCT 42.2 % (34.0-46.0); HGB 13.9 gm/dL (11.4-16.0); Lymphocytes # (A) 1.2 k/uL (1.0-4.8); Lymphocytes % (A) 17 %; MCH 29.3 pg (25.0-35.0); MCHC 32.9 g/dL (31.0-37.0); MCV 89.3 fL (80.0-100.0); Mean Platelet Volume 6.7; Monocytes # (A) 0.5 k/uL (0-1.0); Monocytes % (A) 7 %; Neutrophils # (A) 4.7 k/uL (1.3-7.7); Neutrophils % (A) 66 %; Platelet Count 241 k/uL (150-450); RBC 4.72 m/uL (3.80-5.40); RDW 12.9 % (11.5-15.5); WBC 7.2 k/uL (3.8-10.6)
[2018-09-29 03:12] VITALS: RESP 16
[2018-09-29 03:12] LABS: ALT 22 U/L (9-52); AST 22 U/L (14-36); Albumin 3.9 g/dL (3.5-5.0); Alkaline Phosphatase 73 U/L (38-126); Anion Gap 10 mmol/L; Blood Urea Nitrogen 10 mg/dL (7-17); Calcium 8.9 mg/dL (8.4-10.2); Carbon Dioxide 22 mmol/L (22-30); Chloride 106 mmol/L (98-107); Glucose 93 mg/dL (74-99); Magnesium 1.8 mg/dL (1.6-2.3); Sodium 138 mmol/L (137-145); Total Bilirubin 0.4 mg/dL (0.2-1.3); Total Protein 6.7 g/dL (6.3-8.2)
--- NOTE | 2018-09-29 03:13 | XR ---
EXAM: XR Chest, 2 Views CLINICAL HISTORY: ITS.REASON XR Reason: Chest Pain TECHNIQUE: Frontal and lateral views of the chest. COMPARISON: Chest x-ray 05/19/16 FINDINGS: Lungs: No consolidation or mass. Pleural space: No effusion. Heart: No cardiomegaly. Mediastinum: Unremarkable. Bones/joints: No acute findings. IMPRESSION: No acute cardiopulmonary process.
[2018-09-29 03:26] LABS: Creatine Kinase 44 U/L (30-135)
[2018-09-29 03:39] LABS: Creatine Kinase MB 0.4 ng/mL (0.0-2.4); Troponin I <0.012 ng/mL (0.000-0.034)
[2018-09-29 03:41] LABS: D-Dimer 0.31 mg/L FEU (<0.60); Partial Thromboplastin Time 24.5 sec (22.0-30.0); Prothrombin Time 10.1 sec (9.0-12.0)
[2018-09-29] MEDS ORDERED: MORPHINE SULFATE 4 MG/ML SYRINGE IVP STA (03:51)
[2018-09-29] MEDS ORDERED: ACET/COD 300 MG/30 MG STARTER PACK 6 TAB BTL PO STA (04:11)
[2018-09-29 04:23] VITALS: BP 129/61; PULSE 76
== END 2018-09-29 04:25 | disposition home or self-care (01) ==
LOC: EC 02:00
DX: R07.9 Chest pain, unspecified (principal); R06.02 Shortness of breath; I45.10 Unspecified right bundle-branch block; Z32.02 Encounter for pregnancy test, result negative; M25.512 Pain in left shoulder; M79.602 Pain in left arm; M54.2 Cervicalgia; R42 Dizziness and giddiness; R00.2 Palpitations; R11.0 Nausea; R05 Cough; R50.9 Fever, unspecified; F41.9 Anxiety disorder, unspecified; Z88.1 Allergy status to other antibiotic agents; Z79.899 Other long term (current) drug therapy; Z86.79 Personal history of other diseases of the circulatory system; Z98.890 Other specified postprocedural states
CPT/HCPCS: 36415; 85379; 80053; 82550; 82553; 83735; 84484; 85025; 85610; 85730; 81003; 81025; 71046; 99285; 96374; 96375 ×2; J2270; J2405; J1885

== ENCOUNTER 2019-02-27 11:21 | Emergency (ER) | payer BC ==
[2019-02-27 11:24] VITALS: BP 139/73; PULSE 64; RESP 18; TEMP 98.3
[2019-02-27 11:51] LABS: Appearance,Urine Clear (Clear); Bilirubin,Urine Negative (Negative); Blood,Urine Negative (Negative); Color,Urine Light Yellow; Glucose,Urine (UA) Negative (Negative); Ketones,Urine Negative (Negative); Leukocyte Esterase,Urine Negative (Negative); Nitrite,Urine Negative (Negative); Protein,Urine Negative (Negative); Specific Gravity,Urine 1.008 (1.001-1.035); Urobilinogen,Urine <2.0 mg/dL (<2.0)
--- NOTE | 2019-02-27 12:12 | CT ---
EXAMINATION TYPE: CT brain wo con DATE OF EXAM: 02/27/2019 COMPARISON: None. HISTORY: Vertigo, headache, dizziness. CT DLP: 1091.4 mGycm. Automated Exposure Control for Dose Reduction was Utilized. TECHNIQUE: CT scan of the head is performed without contrast. FINDINGS: There is no acute intracranial hemorrhage, mass effect, or midline shift identified. The ventricles and sulci are within normal limits in size. Gordon-white matter differentiation is preserve d. The globes are intact and the visualized sinuses are clear. No suspicious opacification mastoid ai r cells is present bilaterally. IMPRESSION: Unremarkable study.
[2019-02-27] MEDS ORDERED: SODIUM CHLORIDE 0.9% 1,000 ML IV STA (13:21)
--- NOTE | 2019-02-27 13:47 | ED ---
Dizziness HPI - General Chief Complaint: Dizziness Stated Complaint: vertigo/headaches Time Seen by Provider: 02/27/19 11:25 Source: patient, RN notes reviewed, old records reviewed Mode of arrival: ambulatory Limitations: no limitations - History of Present Illness Initial Comments: This is a 23-year-old female the ER for evasive dizziness headache migraine type headaches symptoms of vertigo and not feeling well for a few days now. Symptoms worse over the past week but she's had the symptoms again prior past. She takes no medications has no medical history no fevers no headache currently. Patient has also some blurry vision earlier today while driving. Patient was seen at [facility] and told to come the emergency room for further evaluation. Patient is with without headache currently, without for revision currently doesn't to some vertigo and some dizziness. MD Complaint: dizziness, other (Vertigo) -: week(s) Timing: gradual onset, intermittent, waxing/waning, now resolved Description: sense of movement, "room spinning", off-balance History of Same: Yes History of Trauma: No Severity: mild Improves With: remaining still Worsens With: movement Associated Symptoms: denies other symptoms - Related Data Home Medications Medication Instructions Recorded Confirmed Cetirizine HCl [Zyrtec] 10 mg PO DAILY PRN 09/14/18 02/27/19 Allergies Allergy/AdvReac Type Severity Reaction Status Date / Time cefixime [From Suprax] Allergy Rash/Hives Verified 02/27/19 11:34 Review of Systems ROS Statement: Those systems with pertinent positive or pertinent negative responses have been documented in the HPI. ROS Other: All systems not noted in ROS Statement are negative. Past Medical History Past Medical History: No Reported History Additional Past Medical History / Comment(s): tachycardia History of Any Multi-Drug Resistant Organisms: None Reported Past Surgical History: Ablation Past Anesthesia/Blood Transfusion Reactions: No Reported Reaction Past Psychological History: Anxiety Smoking Status: Never smoker Past Alcohol Use History: Rare Past Drug Use History: None Reported - Past Family History Father Family Medical History: No Reported History Mother Family Medical History: No Reported History Additional Family Medical History / Comment(s): anxiet,depression,bone spurs to back General Exam Limitations: no limitations General appearance: alert, in no apparent distress Head exam: Present: atraumatic, normocephalic, normal inspection Eye exam: Present: normal appearance, PERRL, EOMI. Absent: scleral icterus, conjunctival injection, periorbital swelling ENT exam: Present: normal exam, mucous membranes moist Neck exam: Present: normal inspection. Absent: tenderness, meningismus, lymphadenopathy Respiratory exam: Present: normal lung sounds bilaterally. Absent: respiratory distress, wheezes, rales, rhonchi, stridor Cardiovascular Exam: Present: regular rate, normal rhythm, normal heart sounds. Absent: systolic murmur, diastolic murmur, rubs, gallop, clicks GI/Abdominal exam: Present: soft, normal bowel sounds. Absent: distended, tenderness, guarding, rebound, rigid Extremities exam: Present: normal inspection, full ROM, normal capillary refill. Absent: tenderness, pedal edema, joint swelling, calf tenderness Back exam: Present: normal inspection Neurological exam: Present: alert, oriented X3, CN II-XII intact Psychiatric exam: Present: normal affect, normal mood Skin exam: Present: warm, dry, intact, normal color. Absent: rash Course Vital Signs 02/27/19 11:22 Temperature 98.3 F Pulse Rate 64 Respiratory 18 Rate Blood Pressure 139/73 O2 Sat by Pulse 99 Oximetry - Reevaluation(s) Reevaluation #1: 02/27/19 14:36 Medical record reviewed Reevaluation #2: 02/27/19 14:36 Patient is able to ambulate relatively asymptomatic EKG Findings - EKG Comments: EKG Findings:: EKG shows normal sinus rhythm rate of 62, GA 120, QRS 100, QTc 434 Medical Decision Making - Medical Decision Making 23 female the ER for evaluation of weakness dizziness vertigo and headache, new onset migraine currently. Patient will be discharged home given migraine in structions follow-up with neurology, patient is CT brain which is negative for acute disease - Lab Data Result diagrams: 02/27/19 13:53 02/27/19 13:53 Lab Results 02/27/19 02/27/19 02/27/19 Range/Units 11:30 11:30 13:53 WBC 5.9 (3.8-10.6) k/uL RBC 5.19 (3.80-5.40) m/uL Hgb 14.6 (11.4-16.0) gm/dL Hct 45.5 (34.0-46.0) % MCV 87.7 (80.0-100.0) fL MCH 28.1 (25.0-35.0) pg MCHC 32.0 (31.0-37.0) g/dL RDW 13.4 (11.5-15.5) % Plt Count 280 (150-450) k/uL Neutrophils % 65 % Lymphocytes % 21 % Monocytes % 7 % Eosinophils % 5 % Basophils % 0 % Neutrophils # 3.8 (1.3-7.7) k/uL Lymphocytes # 1.2 (1.0-4.8) k/uL Monocytes # 0.4 (0-1.0) k/uL Eosinophils # 0.3 (0-0.7) k/uL Basophils # 0.0 (0-0.2) k/uL Sodium (137-145) mmol/L Potassium (3.5-5.1) mmol/L Chloride (98-107) mmol/L Carbon Dioxide (22-30) mmol/L Anion Gap mmol/L BUN (7-17) mg/dL Creatinine (0.52-1.04) mg/dL Est GFR (CKD-EPI)AfAm (>60 ml/min/1.73 sqM) Est GFR (CKD-EPI)NonAf (>60 ml/min/1.73 sqM) Glucose (74-99) mg/dL Calcium (8.4-10.2) mg/dL Phosphorus (2.5-4.5) mg/dL Magnesium (1.6-2.3) mg/dL Total Bilirubin (0.2-1.3) mg/dL AST (14-36) U/L ALT (9-52) U/L Alkaline Phosphatase (38-126) U/L Total Protein (6.3-8.2) g/dL Albumin (3.5-5.0) g/dL Urine Color Light Yellow Urine Appearance Clear (Clear) Urine pH 6.0 (5.0-8.0) Ur Specific [place] 1.008 (1.001-1.035) Urine Protein Negative (Negative) Urine Glucose (UA) Negative (Negative) Urine Ketones Negative (Negative) Urine Blood Negative (Negative) Urine Nitrite Negative (Negative) Urine Bilirubin Negative (Negative) Urine Urobilinogen <2.0 (<2.0) mg/dL Ur Leukocyte Esterase Negative (Negative) Urine HCG, Qual Not Detected (Not Detectd) 02/27/19 Range/Units 13:53 WBC (3.8-10.6) k/uL RBC (3.80-5.40) m/uL Hgb (11.4-16.0) gm/dL Hct (34.0-46.0) % MCV (80.0-100.0) fL MCH (25.0-35.0) pg MCHC (31.0-37.0) g/dL RDW (11.5-15.5) % Plt Count (150-450) k/uL Neutrophils % % Lymphocytes % % Monocytes % % Eosinophils % % Basophils % % Neutrophils # (1.3-7.7) k/uL Lymphocytes # (1.0-4.8) k/uL Monocytes # (0-1.0) k/uL Eosinophils # (0-0.7) k/uL Basophils # (0-0.2) k/uL Sodium 139 (137-145) mmol/L Potassium 4.2 (3.5-5.1) mmol/L Chloride 106 (98-107) mmol/L Carbon Dioxide 25 (22-30) mmol/L Anion Gap 8 mmol/L BUN 9 (7-17) mg/dL Creatinine 0.48 L (0.52-1.04) mg/dL Est GFR (CKD-EPI)AfAm >90 (>60 ml/min/1.73 sqM) Est GFR (CKD-EPI)NonAf >90 (>60 ml/min/1.73 sqM) Glucose 79 (74-99) mg/dL Calcium 9.7 (8.4-10.2) mg/dL Phosphorus 3.9 (2.5-4.5) mg/dL Magnesium 1.7 (1.6-2.3) mg/dL Total Bilirubin 0.7 (0.2-1.3) mg/dL AST 24 (14-36) U/L ALT 33 (9-52) U/L Alkaline Phosphatase 76 (38-126) U/L Total Protein 7.7 (6.3-8.2) g/dL Albumin 4.7 (3.5-5.0) g/dL Urine Color Urine Appearance (Clear) Urine pH (5.0-8.0) Ur Specific [place] (1.001-1.035) Urine Protein (Negative) Urine Glucose (UA) (Negative) Urine Ketones (Negative) Urine Blood (Negative) Urine Nitrite (Negative) Urine Bilirubin (Negative) Urine Urobilinogen (<2.0) mg/dL Ur Leukocyte Esterase (Negative) Urine HCG, Qual (Not Detectd) - Radiology Data Radiology results: report reviewed (CT brain is negative for acute disease), image reviewed Disposition Clinical Impression: Vertigo, Migraine headache Disposition: HOME SELF-CARE Condition: Good Instructions (If sedation given, give patient instructions): Vertigo (ED), Benign Paroxysmal Positional Vertigo (ED), Migraine Headache (ED) Is patient prescribed a controlled substance at d/c from ED?: No Referrals: Gerson Gray MD [STAFF PHYSICIAN] - 1-2 days Linda Gray MD [STAFF PHYSICIAN] - 1-2 days
[2019-02-27 14:15] LABS: Basophils % (A) 0 %; Eosinophils # (A) 0.3 k/uL (0-0.7); Eosinophils % (A) 5 %; HCT 45.5 % (34.0-46.0); HGB 14.6 gm/dL (11.4-16.0); Lymphocytes # (A) 1.2 k/uL (1.0-4.8); Lymphocytes % (A) 21 %; MCH 28.1 pg (25.0-35.0); MCV 87.7 fL (80.0-100.0); Mean Platelet Volume 7.2; Monocytes # (A) 0.4 k/uL (0-1.0); Monocytes % (A) 7 %; Neutrophils # (A) 3.8 k/uL (1.3-7.7); Neutrophils % (A) 65 %; Platelet Count 280 k/uL (150-450); RBC 5.19 m/uL (3.80-5.40); RDW 13.4 % (11.5-15.5); WBC 5.9 k/uL (3.8-10.6)
[2019-02-27 14:24] LABS: ALT 33 U/L (9-52); AST 24 U/L (14-36); Albumin 4.7 g/dL (3.5-5.0); Alkaline Phosphatase 76 U/L (38-126); Anion Gap 8 mmol/L; Blood Urea Nitrogen 9 mg/dL (7-17); Calcium 9.7 mg/dL (8.4-10.2); Carbon Dioxide 25 mmol/L (22-30); Chloride 106 mmol/L (98-107); Glucose 79 mg/dL (74-99); Magnesium 1.7 mg/dL (1.6-2.3); Phosphorus 3.9 mg/dL (2.5-4.5); Potassium 4.2 mmol/L (3.5-5.1); Sodium 139 mmol/L (137-145); Total Bilirubin 0.7 mg/dL (0.2-1.3); Total Protein 7.7 g/dL (6.3-8.2)
== END 2019-02-27 15:03 | disposition home or self-care (01) ==
LOC: EC 11:21
DX: G43.909 Migraine, unspecified, not intractable, without status migrainosus (principal); Z88.1 Allergy status to other antibiotic agents
CPT/HCPCS: 36415; 70450; 80053; 81003; 81025; 83735; 83880; 84100; 84443; 84484; 85025; 93005; 96360; 99285

== ENCOUNTER 2019-11-17 15:25 | Emergency (ER) | payer BC ==
[2019-11-17 15:56] VITALS: BP 125/76; PULSE 81; RESP 18; TEMP 98.2
[2019-11-17] MEDS ORDERED: LIDOCAINE 1% INJ 10MG/ML (20 ML MDV) SQ ONE (16:30)
--- NOTE | 2019-11-17 17:03 | ED ---
Skin/Abscess/FB HPI - General Chief complaint: Skin/Abscess/Foreign Body Stated complaint: Cyst in groin, Dizziness Time Seen by Provider: 11/17/19 15:57 Source: patient Mode of arrival: wheelchair Limitations: no limitations - History of Present Illness Initial comments: Patient is a 24-year-old female presenting to the emergency department with complaints of and possible abscess on her right side of her labia. Patient states she noticed a small cyst yesterday when she was wiping but then today has increased in size and is very painful. Patient is having a hard time working secondary to the pain and hurts to just walk. Patient denies any fever, chills. Patient states she's never had this before. Patient denies any urinary complaints. There are no other complaints at this time. Upon arrival to the ER, her vital signs are stable. - Related Data Home Medications Medication Instructions Recorded Confirmed Cetirizine HCl [Zyrtec] 10 mg PO DAILY PRN 09/14/18 02/27/19 Allergies Allergy/AdvReac Type Severity Reaction Status Date / Time cefixime [From Suprax] Allergy Rash/Hives Verified 11/17/19 15:54 Review of Systems ROS Statement: Those systems with pertinent positive or pertinent negative responses have been documented in the HPI. ROS Other: All systems not noted in ROS Statement are negative. Past Medical History Past Medical History: No Reported History Additional Past Medical History / Comment(s): tachycardia History of Any Multi-Drug Resistant Organisms: None Reported Past Surgical History: Ablation Past Anesthesia/Blood Transfusion Reactions: No Reported Reaction Past Psychological History: Anxiety Smoking Status: Never smoker Past Alcohol Use History: Rare Past Drug Use History: None Reported - Past Family History Father Family Medical History: No Reported History Mother Family Medical History: No Reported History Additional Family Medical History / Comment(s): anxiet,depression,bone spurs to back General Exam - General Exam Comments Initial Comments: GENERAL: Well-appearing, well-nourished and in no acute distress. HEAD: Atraumatic, normocephalic. EYES: Pupils equal round and reactive to light, extraocular movements intact, sclera anicteric, conjunctiva are normal. ENT: Moist mucous membranes. NECK: Normal range of motion, supple without lymphadenopathy or JVD. LUNGS: Breath sounds clear to auscultation bilaterally and equal. No wheezes rales or rhonchi. HEART: Regular rate and rhythm without murmurs, rubs or gallops. ABDOMEN: Soft, nontender, normoactive bowel sounds. No guarding, no rebound. No masses appreciated. EXTREMITIES: Normal range of motion, no pitting or edema. No clubbing or cyanosis. SKIN: Warm, Dry, normal turgor, no rashes or lesions noted. Limitations: no limitations External exam: Present: swelling. Absent: erythema, lacerations (Patient has moderate size bartholin gland abscess on the right lower labia.) Course Vital Signs 11/17/19 15:54 Temperature 98.2 F Pulse Rate 81 Respiratory 18 Rate Blood Pressure 125/76 O2 Sat by Pulse 100 Oximetry Procedures - Incision & Drainage Consent Obtained: verbal consent Indication: bartholin gland Abscess Site: vulva/vagina Size (cm): 2 Anesthetic Used: lidocaine 1% Amount (mLs): 2 I&D Cleaning Method: Alcohol Wipe Sterile Field Used?: Yes Scalpel Used: #11 Needle Aspiration Performed?: No Irrigation Performed?: No I&D Drainage Obtained: Pus, Blood Culture Obtained?: No Patient Tolerated Procedure: well Medical Decision Making - Medical Decision Making Patient is a 24-year-old female presenting with a right bartholin gland cyst abscess that started yesterday. Vitals normal. I&D was performed on this cyst and moderate amount of blood and pus was drained. Patient tolerated procedure well. Patient is stable for discharge at this time. Patient will continue with warm compresses and will follow up with her [employer] if symptoms persist. Patient is in agreement with this plan of care. Disposition Clinical Impression: Bartholin's gland abscess Disposition: HOME SELF-CARE Condition: Stable Instructions (If sedation given, give patient instructions): Abscess Incision and Drainage (ED) Additional Instructions: Please return to the Emergency Department if symptoms worsen or any other concerns. Continue to use warm compresses to the area. Keep area clean and dry. Follow-up with [employer] if symptoms persist. Is patient prescribed a controlled substance at d/c from ED?: No Referrals: Abraham Juan MD [Primary Care Provider] - 1-2 days
== END 2019-11-17 17:11 | disposition home or self-care (01) ==
LOC: EC 15:25
DX: N75.1 Abscess of Bartholin's gland (principal); Z88.1 Allergy status to other antibiotic agents
CPT/HCPCS: 99283; 56420; J2001

== ENCOUNTER → 2022-01-14 | Outpatient (CLI) | payer BC, OTHER ==
[~2022-01-14] MED LIST: LACTATED RINGERS 1,000 ML IV ONE
--- NOTE | 2022-01-14 20:35 | P.HPOB ---
History of Present Illness H&P Date: 01/14/22 Chief Complaint: Abdominal pain This is a 26-year-old 2 para 1001 woman who presented at 20-2/7 weeks gestation complaining of worsening abdominal pain throughout the day. This is significant enough that she is not able to comfortably go about her daily activities. She described the pain as severe lower abdominal cramping. She denies vaginal bleeding, leakage of fluids, nausea, vomiting, fevers, chills, constipation, diarrhea, dysuria, hematuria, recent illness, trauma or intercourse. She presents to labor and delivery triage where she is found to have some palpable and traceable uterine contractions. Review of Systems Constitutional: Denies chills, Denies fever Cardiovascular: Denies chest pain, Denies irregular heart beat, Denies shortness of breath Respiratory: Denies congestion, Denies cough Gastrointestinal: Reports abdominal pain, Denies BRBPR, Denies change in bowel habits, Denies constipation, Denies diarrhea, Denies heartburn, Denies nausea, Denies vomiting Genitourinary: Denies abnormal vaginal bleeding, Denies dysuria, Denies flank pain, Denies hematuria, Denies urgency, Denies vaginal discharge Menstruation: Reports as per HPI Musculoskeletal: Denies low back pain Integumentary: Denies rash Neurological: Denies headaches Psychiatric: Reports anxiety Past Medical History Past Medical History: No Reported History Additional Past Medical History / Comment(s): tachycardia History of Any Multi-Drug Resistant Organisms: None Reported Past Surgical History: Ablation Additional Past Surgical History / Comment(s): Cardiac ablation Past Anesthesia/Blood Transfusion Reactions: No Reported Reaction Past Psychological History: Anxiety Past Alcohol Use History: Rare Past Drug Use History: None Reported - Past Family History Father Family Medical History: No Reported History Mother Family Medical History: No Reported History Additional Family Medical History / Comment(s): anxiet,depression,bone spurs to back Medications and Allergies Home Medications Medication Instructions Recorded Confirmed Type Pnv No.95/Ferrous Fum/Folic AC 1 each PO DAILY 01/14/22 01/14/22 History [ Multivitamin Tablet] Allergies Allergy/AdvReac Type Severity Reaction Status Date / Time cefixime [From Suprax] Allergy Rash/Hives Verified 01/14/22 19:01 Exam Intake and Output 01/14/22 01/14/22 01/14/22 06:59 14:59 22:59 Other: Weight 61.689 kg This is a very anxious appearing female in no other acute distress. HEENT exam is unremarkable. Her breathing is unlabored and her heart is a regular rate and rhythm. The abdomen is soft with a fundal height at approximately the umbilicus. She has generalized tenderness in the right and left lower quadrants with palpation. There is no rebound or guarding. There is no flank pain. The uterus is soft. The extremities are free of swelling, redness or rash. On sterile pelvic examination the cervix is closed, thick and 3+ centimeters long. There is no cervical motion tenderness. There is no bladder vaginal bleeding or obvious discharge. heart tones are dopplered and reassuring for gestational age. I performed bedside ultrasound prior to pelvic examination. There is a single intrauterine in the vertex presentation with active vigorous motion. The placenta appears posterior and is not low lying. There appears to be no funneling or cervical dilation. The cervix is visualized and appears to be long and closed. Assessment and Plan (1) 20 weeks gestation of Current Visit: Yes Status: Acute Code(s): Z3A.20 - 20 WEEKS GESTATION OF SNOMED Code(s): 23160366 (2) Abdominal pain Current Visit: Yes Status: Acute Code(s): R10.9 - UNSPECIFIED ABDOMINAL PAIN SNOMED Code(s): 52302883 Plan: 26-year-old 2 para 1 woman at 20-2/7 weeks' gestation presenting with lower abdominal cramping. No acute findings on obstetric evaluation at this time. IV fluid resuscitation will be undertaken. The patient is reassured. Following completion of IV fluid rehydration the patient remains symptomatic or if there is change in clinical status she will be reassessed. Otherwise she will be discharged home from labor and delivery triage to follow up closely in the outpatient setting. Time with Patient: Greater than 30
[2022-01-14 21:20] VITALS: BP 116/61; PULSE 73; TEMP 98.4
== END ==
LOC: FBPOP 18:52
PROVIDERS: ATTEND Obstetrics & Gynecology
DX: O26.892 Other specified pregnancy related conditions, second trimester (principal); R10.9 Unspecified abdominal pain; O99.342 Other mental disorders complicating pregnancy, second trimester; F41.9 Anxiety disorder, unspecified; Z3A.20 20 weeks gestation of pregnancy; Z88.1 Allergy status to other antibiotic agents
CPT/HCPCS: 96360; 96361; 99214

== ENCOUNTER 2022-05-03 08:56 | Emergency (ER) | payer OTHER ==
[2022-05-03 08:59] VITALS: BP 118/83; PULSE 82; RESP 20; TEMP 97.6
--- NOTE | 2022-05-03 09:49 | ED ---
ENT HPI - General Chief complaint: Dental/Oral Stated complaint: jaw pain Time Seen by Provider: 05/03/22 09:03 Source: patient, RN notes reviewed Mode of arrival: ambulatory Limitations: no limitations - History of Present Illness Initial comments: 26 female presented to the emergency Department with chief complaint of left- sided jaw, tooth pain. Patient states started other day with more job and states that her tooth hurts. Patient states that she is getting worse. She states she's not had her wasn't extracted. No difficulty swelling no fever or chills. Patient states she is currently and is concerned about infection. - Related Data Home Medications Medication Instructions Recorded Confirmed Acetaminophen Tab [Tylenol Tab] 1,000 mg PO Q6HR PRN 05/03/22 05/03/22 Previous Rx's Medication Instructions Recorded Penicillin V Potassium [Pen Vee K] 500 mg PO QID #40 tablet 05/03/22 Allergies Allergy/AdvReac Type Severity Reaction Status Date / Time cefixime [From Suprax] Allergy Rash/Hives Verified 05/03/22 09:57 Review of Systems ROS Statement: Those systems with pertinent positive or pertinent negative responses have been documented in the HPI. ROS Other: All systems not noted in ROS Statement are negative. Past Medical History Past Medical History: No Reported History Additional Past Medical History / Comment(s): tachycardia History of Any Multi-Drug Resistant Organisms: None Reported Past Surgical History: Ablation Additional Past Surgical History / Comment(s): Cardiac ablation Past Anesthesia/Blood Transfusion Reactions: No Reported Reaction Past Psychological History: Anxiety Smoking Status: Never smoker Past Alcohol Use History: None Reported Past Drug Use History: None Reported - Past Family History Father Family Medical History: No Reported History Mother Family Medical History: No Reported History Additional Family Medical History / Comment(s): anxiet,depression,bone spurs to back General Exam Limitations: no limitations General appearance: alert, in no apparent distress Head exam: Present: atraumatic, normocephalic, normal inspection Eye exam: Present: normal appearance, PERRL, EOMI. Absent: scleral icterus, conjunctival injection, periorbital swelling ENT exam: Present: mucous membranes moist. Absent: normal exam, normal oropharynx (Impacted molar left lower) Neck exam: Present: normal inspection, full ROM. Absent: tenderness, meningismus, lymphadenopathy Respiratory exam: Present: normal lung sounds bilaterally. Absent: respiratory distress, wheezes, rales, rhonchi, stridor Cardiovascular Exam: Present: regular rate, normal rhythm, normal heart sounds. Absent: systolic murmur, diastolic murmur, rubs, gallop, clicks Course Vital Signs 05/03/22 08:57 Temperature 97.6 F Pulse Rate 82 Respiratory 20 Rate Blood Pressure 118/83 O2 Sat by Pulse 100 Oximetry Medical Decision Making - Medical Decision Making Patient we placed on oral antibiotics for probable underlying dental infection she has impacted molar she is advised to follow-up with dentist or oral surgery return parameters were discussed. Disposition Clinical Impression: Impacted molar, Toothache Disposition: HOME SELF-CARE Condition: Stable Instructions (If sedation given, give patient instructions): Toothache (ED) Additional Instructions: Please return to the Emergency Department if symptoms worsen or any other concerns. Prescriptions: Penicillin V Potassium [Pen Vee K] 500 mg PO QID #40 tablet Is patient prescribed a controlled substance at d/c from ED?: No Referrals: Abraham Juan MD [Primary Care Provider] - 1-2 days Time of Disposition: 09:49
== END 2022-05-03 09:54 | disposition home or self-care (01) ==
LOC: EC 08:56
DX: O99.619 Diseases of the digestive system complicating pregnancy, unspecified trimester (principal); O99.340 Other mental disorders complicating pregnancy, unspecified trimester; K08.89 Other specified disorders of teeth and supporting structures; K01.1 Impacted teeth; F41.9 Anxiety disorder, unspecified; Z88.1 Allergy status to other antibiotic agents; Z3A.00 Weeks of gestation of pregnancy not specified
CPT/HCPCS: 99283

== ENCOUNTER 2022-05-30 07:07 | Inpatient (IN) | payer OTHER ==
[2022-05-31] MEDS ORDERED: TERBUTALINE 1 MG/ML VIAL SQ PRN (06:29)
[2022-05-31] MEDS ORDERED: LIDOCAINE 0.5% (PF) 5 MG/ML (50 ML SDV) SQ PRN (06:29)
[2022-05-31] MEDS ORDERED: METHYLERGONOVINE 0.2 MG/ML 1 ML AMP IM PRN (06:29)
[2022-05-31] MEDS ORDERED: CARBOPROST TROMETHAMINE 250 MCG/ML 1 ML AMP IM PRN (06:29)
[2022-05-31] MEDS ORDERED: OXYTOCIN 10 UNIT/ML 1 ML VIAL IM PRN (06:29)
[2022-05-31] MEDS ORDERED: OXYTOCIN 30 UNITS/500 ML NS 30 UNIT in SALINE 1 500ML.BAG IV SCH (06:30)
[2022-05-31] MEDS ORDERED: CLINDAMYCIN 900 MG in DEXTROSE 5% IN WATER 50 ML IVPB STA ×2 (06:35)
[2022-05-31] MEDS: LACTATED RINGERS 1,000 ML IV SCH ×2 (06:40→11:02)
--- NOTE | 2022-05-31 08:09 | P.HPOB ---
History of Present Illness H&P Date: 05/31/22 Chief Complaint: Here for elective induction of labor with favorable multiparous cervix This is a 26-year-old female 2 para 1001 EDC 06/01/2022 at 39-6/7 weeks' gestation who presents today for elective induction. She is actually having spontaneous uterine contractions of mild intensity every 2-5 minutes apart. Fetus is been active throughout the . She denies fluid leakage or vaginal bleeding. Past medical history is significant for arrhythmia with secondary syncope, status post cardiac ablation. Past surgical history cardiac ablation 2016. Current medications vitamins daily, baby aspirin daily. ALLERGIES include Suprax to which she reports irritation and blotches, along with seasonal ALLERGIES. Family history significant for atrial fibrillation, cervical cancer, depression, ADHD, endometriosis, asthma. Past obstetric history significant for spontaneous vaginal delivery in 2013, liveborn female infant. Social history patient is single, father of the baby is present and involved. She is employed as a realtor. She denies alcohol drug use or tobacco use. history is significant for blood type O positive, rubella status immune. Positive group B strep cultures noted. Hepatitis B surface antigen, urine culture, HIV testing, gonorrhea and chlamydia cultures all negative. One- hour Glucola 86. Thyroid function studies within normal limits. On exam patient is 5 foot 4 inches, 170 pounds, blood pressure 117/71 on admission. The general physical exam is within normal limits the chest is clear. Extremities are negative for edema. Cervix is 3 cm dilated, 60-70% effaced, -2 station, soft, anterior, vertex presentation. Artificial amniorrhexis reveals clear fluid. heart rate is consistent with reactive NST. Uterine contractions are occurring approximately every 2-3 minutes apart. Impression: 39-6/7 weeks intrauterine , here for induction of labor, all signs reassuring. Positive group B strep cultures, first dose of Cleocin is running. Plan: Continue close maternal and surveillance. Oxytocin per hospital protocol. Analgesic options reviewed. Antibiotic prophylaxis. Anticipate normal spontaneous vaginal delivery. Review of Systems Constitutional: Reports as per HPI Past Medical History Past Medical History: No Reported History, Syncope Additional Past Medical History / Comment(s): tachycardia History of Any Multi-Drug Resistant Organisms: None Reported Past Surgical History: Ablation Additional Past Surgical History / Comment(s): Cardiac ablation Past Anesthesia/Blood Transfusion Reactions: No Reported Reaction Past Psychological History: Anxiety Smoking Status: Never smoker Past Alcohol Use History: None Reported Past Drug Use History: None Reported - Past Family History Father Family Medical History: No Reported History Mother Family Medical History: No Reported History Additional Family Medical History / Comment(s): anxiet,depression,bone spurs to back Medications and Allergies Home Medications Medication Instructions Recorded Confirmed Type No Known Home Medications 05/31/22 05/31/22 History Allergies Allergy/AdvReac Type Severity Reaction Status Date / Time cefixime [From Suprax] Allergy Rash/Hives Verified 05/31/22 06:28 Exam Vital Signs Temp Pulse Resp BP 05/31/22 06:27 97.2 F L 89 16 117/71 Intake and Output 05/30/22 05/31/22 05/31/22 22:59 06:59 14:59 Other: Weight 77.111 kg See dictation under HPI please Assessment and Plan Assessment: 39-6/7 weeks intrauterine , here for induction of labor with all signs reassuring, positive group B strep status Plan: Continue close maternal and surveillance. Antibiotics per hospital protocol. Oxytocin per hospital protocol. Analgesic options reviewed. Anticipate normal spontaneous vaginal delivery. Time with Patient: Less than 30
[2022-05-31 08:11] LABS: Basophils % (A) 0 %; Eosinophils # (A) 0.1 k/uL (0-0.7); Eosinophils % (A) 1 %; HCT 36.7 % (34.0-46.0); HGB 11.7 gm/dL (11.4-16.0); Lymphocytes # (A) 1.4 k/uL (1.0-4.8); Lymphocytes % (A) 13 %; MCH 27.7 pg (25.0-35.0); MCHC 31.9 g/dL (31.0-37.0); MCV 87.1 fL (80.0-100.0); Mean Platelet Volume 8.6; Monocytes # (A) 0.5 k/uL (0-1.0); Monocytes % (A) 5 %; Neutrophils # (A) 8.2 k/uL (1.3-7.7); Neutrophils % (A) 79 %; Platelet Count 158 k/uL (150-450); RBC 4.22 m/uL (3.80-5.40); RDW 14.8 % (11.5-15.5); WBC 10.4 k/uL (3.8-10.6)
[2022-05-31] MEDS ORDERED: PENICILLIN G POTASSIUM 5,000,000 UNIT in DEXTROSE 5% IN WATER 100 ML IVPB STA ×2 (08:49)
[2022-05-31] MEDS ORDERED: SODIUM CHLORIDE 0.9% 100 ML BAG ONE (10:43)
[2022-05-31] MEDS ORDERED: fentaNYL (PF) 50 MCG/ML 5 ML AMP ONE (10:43)
[2022-05-31] MEDS ORDERED: ROPIVACAINE 5MG/ML 20ML VIAL ONE (10:43)
[2022-05-31] MEDS: PENICILLIN G POTASSIUM 2,500,000 UNIT in DEXTROSE 5% IN WATER 100 ML IVPB SCH ×2 (13:45)
[2022-05-31] MEDS ORDERED: BENZOCAINE/MENTHOL SPRAY 1 GM/SPRAY AEROSOL TOPICAL PRN (14:24)
[2022-05-31] MEDS ORDERED: HYDROCORTISONE 2.5% RECTAL CREAM 30 GM TUBE RECTAL PRN (14:24)
[2022-05-31] MEDS ORDERED: diphenhydrAMINE 50 MG CAP PO PRN (14:24)
[2022-05-31] MEDS ORDERED: ZOLPIDEM 5 MG TAB PO PRN (14:24)
[2022-05-31] MEDS ORDERED: SIMETHICONE 80 MG CHEWABLE PO PRN (14:24)
[2022-05-31] MEDS ORDERED: diphenhydrAMINE 25 MG CAP PO PRN (14:24)
[2022-05-31] MEDS ORDERED: diphenhydrAMINE 50 MG/ML 1 ML VIAL IVP PRN ×2 (14:24)
[2022-05-31] MEDS ORDERED: LANOLIN CREAM 5 GM TUBE TOPICAL PRN (14:24)
--- NOTE | 2022-05-31 14:24 | P.PROBDLV ---
Vaginal Delivery Note - . Vaginal Delivery Note: This is a 26-year-old female 2 para 1001 EDC 06/01/2022 at 39-6/7 weeks' gestation who presents for induction with favorable multiparous cervix, actually presenting to the hospital with spontaneous contractions every 2-4 minutes apart of mild intensity. Fetus is been active throughout the . What type is O+, rubella status immune. Please see dictated history and physical for details. Penicillin G was given for 2 units per protocol for positive group B strep cultures. Epidural was placed per the patient's request. Oxytocin was started and titrated per hospital protocol. Patient progressed very well from the first stage of labor, and became completely dilated at 1346 hours. The perineal body was prepped and draped in usual sterile fashion. With excellent maternal expulsive efforts the infant's head delivered occiput anterior and he restituted accordingly. There was no nuchal cord noted. The left or anterior shoulder was gently delivered from underneath the pubic symphysis at which time the oropharynx, and external nares were all bulb suctioned on the perineal body. Cord blood was sent to the lab. Placenta delivered spontaneously, it was inspected and noted to be intact with trivascular cord at 1415 hrs. Perineal body was then redraped. Uterus is massaged. Careful inspection of the cervix, vagina, perineum, periurethral, and perirectal areas revealed no lacerations and no defects. Fundus is firm and in the midline, symmetric and 18 week size upon completion of delivery. Patient is requesting circumcision for her infant son.
[2022-05-31] MEDS ORDERED: CLINDAMYCIN 900 MG in DEXTROSE 5% IN WATER 50 ML IVPB SCH ×2 (14:30)
[2022-05-31] MEDS: IBUPROFEN 600 MG TAB PO PRN (15:09)
[2022-05-31] MEDS: SENNOSIDES-DOCUSATE SODIUM 1 EACH TAB PO SCH (20:16)
[2022-06-01] MEDS: IBUPROFEN 600 MG TAB PO PRN ×4 (01:14→21:27)
[2022-06-01] MEDS: SENNOSIDES-DOCUSATE SODIUM 1 EACH TAB PO SCH ×2 (07:57→21:28)
[2022-06-01] MEDS: LACTATED RINGERS 1,000 ML IV SCH ×2 (08:27→08:29)
[2022-06-01] MEDS: PENICILLIN G POTASSIUM 2,500,000 UNIT in DEXTROSE 5% IN WATER 100 ML IVPB SCH ×2 (08:29)
--- NOTE | 2022-06-01 08:35 | P.DS ---
Providers Date of admission: 05/31/22 06:01 Expected date of discharge: 06/01/22 Attending physician: Patti Tran Primary care physician: Stated None Hospital Course: This is a 26-year-old female 2 para 1001 EDC 06/01/2022 at 39-6/7 weeks' gestation who presented for induction with favorable multiparous cervix, actually joseph spontaneously every 2-5 minutes on admission. Group B strep cultures positive, rubella status immune, blood type O positive. Please see dictated history and physical for details. Patient received 2 doses of penicillin G per hospital protocol, oxytocin and epidural. She went on to deliver spontaneously a liveborn male infant with scores of 9 and 9 at one and 5 minutes respectively. weighed 6 lbs. 11 oz. or 3030 g. Please see dictated delivery note for details. This 20 the patient is doing well. She is voiding, ambulating, passing flatus without difficulties. Vital signs are stable and she is afebrile. Fundus is firm and in the midline, symmetric and 18 week size. Extremities are negative for edema. She has no complaints. Norman has been circumcised. Patient is judged to be in very good condition for discharge home. She will follow-up in the office with me in 6 weeks. She is reminded no intercourse, tampons or douching. She will use [id number] Advil or Aleve, or Motrin as needed for pain. She will call with any fevers shakes or chills, foul smelling or copious lochia, with the passage of large blood clots, or indeed with any difficulties or concerns. Assessment: Doing well post day #1 Patient Condition at Discharge: Good Plan - Discharge Summary Discharge Rx Participant: No New Discharge Prescriptions: No Action No Known Home Medications Discharge Medication List No Known Home Medications 05/31/22 [History] Follow up Appointment(s)/Referral(s): Patti Tran MD [STAFF PHYSICIAN] - 1 Week Discharge Disposition: HOME SELF-CARE
[2022-06-01 09:24] LABS: Basophils # (A) 0.1 k/uL (0-0.2); Basophils % (A) 1 %; Eosinophils # (A) 0.2 k/uL (0-0.7); Eosinophils % (A) 2 %; HCT 36.1 % (34.0-46.0); HGB 11.7 gm/dL (11.4-16.0); Lymphocytes # (A) 1.3 k/uL (1.0-4.8); Lymphocytes % (A) 12 %; MCH 27.8 pg (25.0-35.0); MCHC 32.4 g/dL (31.0-37.0); MCV 85.7 fL (80.0-100.0); Mean Platelet Volume 8.4; Monocytes # (A) 0.4 k/uL (0-1.0); Monocytes % (A) 4 %; Neutrophils # (A) 9.1 k/uL (1.3-7.7); Neutrophils % (A) 81 %; Platelet Count 156 k/uL (150-450); RBC 4.21 m/uL (3.80-5.40); RDW 14.9 % (11.5-15.5); WBC 11.2 k/uL (3.8-10.6)
[2022-06-01 20:22] VITALS: RESP 16
[2022-06-02] MEDS: ACETAMINOPHEN TAB 325 MG TAB PO PRN ×2 (00:30→13:54)
[2022-06-02] MEDS: SENNOSIDES-DOCUSATE SODIUM 1 EACH TAB PO SCH (07:35)
[2022-06-02] MEDS: IBUPROFEN 600 MG TAB PO PRN (07:35)
[2022-06-02 09:21] VITALS: BP 113/73; PULSE 62; TEMP 97.9
== END 2022-06-02 15:00 | disposition home or self-care (01) | DRG 807 ==
LOC: 4FBP 05-31 06:01
PROVIDERS: ADMIT Obstetrics & Gynecology; ATTEND Obstetrics & Gynecology
PROC: 00HU33Z Insertion of Infusion Device into Spinal Canal, Percutaneous Approach (ICD-10-PCS; principal; 2022-05-31)
PROC: 3E033VJ Introduction of Other Hormone into Peripheral Vein, Percutaneous Approach (ICD-10-PCS; principal; 2022-05-31)
PROC: 10E0XZZ Delivery of Products of Conception, External Approach (ICD-10-PCS; principal; 2022-05-31)
PROC: 3E0R3NZ Introduction of Analgesics, Hypnotics, Sedatives into Spinal Canal, Percutaneous Approach (ICD-10-PCS; principal; 2022-05-31)
DX: O99.824 Streptococcus B carrier state complicating childbirth (principal); Z37.0 Single live birth; Z3A.39 39 weeks gestation of pregnancy; O99.52 Diseases of the respiratory system complicating childbirth; J30.2 Other seasonal allergic rhinitis; F41.9 Anxiety disorder, unspecified; O99.344 Other mental disorders complicating childbirth; Z79.82 Long term (current) use of aspirin; Z81.8 Family history of other mental and behavioral disorders; Z82.5 Family history of asthma and other chronic lower respiratory diseases; Z80.49 Family history of malignant neoplasm of other genital organs; Z28.310 Unvaccinated for COVID-19; Z28.21 Immunization not carried out because of patient refusal
CPT/HCPCS: 85025; 86850; 86900; 86901

== ENCOUNTER 2025-03-26 23:31 | Emergency (ER) | payer SELFPAY ==
--- NOTE | 2025-03-26 23:49 | ED ---
Fever HPI - General Chief Complaint: Fever Stated Complaint: Vomiting, Dehydrated Time Seen by Provider: 03/26/25 23:49 Source: patient, RN notes reviewed Mode of arrival: ambulatory Limitations: no limitations - History of Present Illness Initial Comments: Patient is a 29-year-old female with a past medical history significant of tachycardia and syncope presented to the ER for evaluation of nausea, vomiting, diarrhea and fever. Patient reports for the past 5 hours she has felt extremely unwell with continuous nausea, vomiting and diarrhea. She states she has been unable to leave the bathroom due to this. She denies any hematic emesis, coffee ground emesis, hematochezia or melena. She did attempt to take Pepto-Bismol but immediately threw it up. Patient states she believes she has the flu as she also has mild shortness of breath and a cough. She denies any wheezing or chest pain. Patient admits to fevers and chills at home. She endorses generalized abdominal cramping. Denies any urinary complaints. Patient does report she is currently on her menstrual cycle. Patient does report recent sick contacts. Patient has no other complaints at this time. - Related Data Previous Rx's Medication Instructions Recorded Hyoscyamine Sulfate [Levsin] 0.125 mg PO Q4-6H PRN #20 tab 02/13/23 Ondansetron Odt [Zofran Odt] 4 mg PO Q8HR PRN #15 tab 02/13/23 Ondansetron Odt [Zofran Odt] 4 mg PO Q8HR PRN #10 tab 03/27/25 Allergies Allergy/AdvReac Type Severity Reaction Status Date / Time cefixime [From Suprax] Allergy Rash/Hives Verified 03/26/25 23:35 Review of Systems ROS Statement: Those systems with pertinent positive or pertinent negative responses have been documented in the HPI. ROS Other: All systems not noted in ROS Statement are negative. Past Medical History Past Medical History: No Reported History, Syncope Additional Past Medical History / Comment(s): tachycardia History of Any Multi-Drug Resistant Organisms: None Reported Past Surgical History: Ablation Additional Past Surgical History / Comment(s): Cardiac ablation Past Anesthesia/Blood Transfusion Reactions: No Reported Reaction Past Psychological History: Anxiety Smoking Status: Never smoker Past Alcohol Use History: None Reported Past Drug Use History: None Reported - Past Family History Father Family Medical History: No Reported History Mother Family Medical History: No Reported History Additional Family Medical History / Comment(s): anxiet,depression,bone spurs to back General Exam Limitations: no limitations General appearance: alert, in no apparent distress ENT exam: Present: normal exam, normal oropharynx, mucous membranes moist, TM's normal bilaterally Respiratory exam: Present: normal lung sounds bilaterally. Absent: respiratory distress, wheezes, rales, rhonchi, stridor Cardiovascular Exam: Present: normal rhythm, tachycardia, normal heart sounds GI/Abdominal exam: Present: soft, tenderness (generalized), normal bowel sounds. Absent: distended, guarding, rebound, rigid Neurological exam: Present: alert, oriented X3, CN II-XII intact Skin exam: Present: warm, dry, intact, normal color. Absent: rash Course Vital Signs 03/26/25 03/26/25 03/27/25 23:32 23:45 02:03 Temperature 101.5 F H 100.9 F H Pulse Rate 120 H 88 Respiratory 18 22 20 Rate Blood Pressure 112/74 100/59 O2 Sat by Pulse 98 97 Oximetry 03/27/25 03:28 Temperature 98.5 F Pulse Rate 73 Respiratory 18 Rate Blood Pressure 107/61 O2 Sat by Pulse 97 Oximetry - Reevaluation(s) Reevaluation #1: 03/27/25 03:22 Patient reevaluated. No signs of acute distress. Patient updated on laboratory results. Patient would like to be discharged home. Patient refused CT abdomen pelvis. Medical Decision Making - Medical Decision Making Was pt. sent in by a medical professional or institution (, PA, SCHOOL ADMINISTRATOR, urgent care, hospital, or long-term...) When possible be specific @ -No Did you speak to anyone other than the patient for history (EMS, parent, family, police, friend...)? What history was obtained from this source @ -No Did you review nursing and triage notes (agree or disagree)? Why? @ -I reviewed and agree with nursing and triage notes Were old charts reviewed (outside hosp., previous admission, EMS record, old EKG, old radiological studies, urgent care reports/EKG's, long-term records)? Report findings @ -No old charts were reviewed Differential Diagnosis (chest pain, altered mental status, abdominal pain women, abdominal pain men, vaginal bleeding, weakness, fever, dyspnea, syncope, headache, dizziness, GI bleed, back pain, seizure, CVA, palpatations, mental health, musculoskeletal)? @ -Differential Fever:Pneumonia, viral URI, endocarditis, myocarditis, pericarditis, otitis, sinusitis, peritonsillar Abscess, retropharyngeal Abscess, epiglottitis, peritonitis, appendicitis, Elvi cystitis, diverticulitis, hepatitis, colitis, UTI, PID, TOA, pyelonephritis, prostatitis, epididymitis, meningitis, encephalitis, pulmonary embolism, CVA, thyroid storm, pancreatitis, adrenal crisis, cavernous sinus thrombosis, this is not meant to be an all- inclusive list. EKG interpreted by me (3pts min.). @ -As above X-rays interpreted by me (1pt min.). @ -CXR interpreted me negative for focal consolidations, pneumothorax or pleural effusions. Radiology report showing 1.6 cm nodule to the right lower lobe possibly representing patient's nipple. CT interpreted by me (1pt min.). @ -None done U/S interpreted by me (1pt. min.). @ -None done What testing was considered but not performed or refused? (CT, X-rays, U/S, labs)? Why? @ -CT abdomen pelvis recommended, patient refused and requesting discharge. What meds were considered but not given or refused? Why? @ -None Did you discuss the management of the patient with other professionals (professionals i.e. , PA, SCHOOL ADMINISTRATOR, lab, RT, psych nurse, social sciences chair, clinical research coordinator, teacher, international first officer, major case detective)? Give summary @ -No Was smoking cessation discussed for >3mins.? @ -No Was critical care preformed (if so, how long)? @ -No Were there social determinants of health that impacted care today? How? (Homelessness, low income, unemployed, alcoholism, drug addiction, transportation, low edu. Level, literacy, decrease access to med. care, assisted, rehab)? @ -No Was there de-escalation of care discussed even if they declined (Discuss DNR or withdrawal of care, Hospice)? DNR status @ -No What co-morbidities impacted this encounter? (DM, HTN, Smoking, COPD, CAD, Cancer, CVA, ARF, Chemo, Hep., AIDS, mental health diagnosis, sleep apnea, morbid obesity)? @ -None Was patient admitted / discharged? Hospital course, mention meds given and route, prescriptions, significant lab abnormalities, going to OR and other pertinent info. @ -[Discharge. 29-year-old female presented the ER for evaluation of nausea, vomiting and fever. Upon arrival patient is febrile at 101.5F with associated tachycardia at 120 bpm. Vitals otherwise within acceptable limits. Upon my evaluation, patient appears well-developed and well-nourished no signs of acute distress. There is generalized abdominal discomfort on exam with normal bowel sounds. No rebound tenderness or guarding. Workup in the ER with a WBC 9.96 there is a left shift 9.2. Lactic 1.3. Urinalysis with small blood likely contaminated from vaginal bleeding given patient is on her menstrual cycle. 2+ ketones likely due to nausea and vomiting for which patient received IV fluids. Influenza, RSV and COVID-negative. Chest x-ray negative for acute cardiopulmonary process. There is a 1.6 cm nodule to the right lower lobe possibly representing patient's nipple, I instructed her to follow-up with PCP for reevaluation of this in approximately 3 months as recommended by radiology. Patient received symptomatic control in the ER with Toradol, Zofran and Reglan. Upon reevaluation, patient reporting improvement of symptoms and is eager for discharge. Patient refused CT abdomen pelvis. Patient discharged in stable condition with Zofran starter pack and instructed to follow-up with PCP. Strict return parameters discussed. Patient verbally expressed understanding and agreement with care plan. Case discussed with ED attending, Dr. Santoro, who also evaluated patient. Undiagnosed new problem with uncertain prognosis? @ -No Drug Therapy requiring intensive monitoring for toxicity (Heparin, Nitro, Insulin, Cardizem)? @ -No Were any procedures done? @ -No Diagnosis/symptom? @ -Nausea and vomiting Acute, or Chronic, or Acute on Chronic? @ -Acute Uncomplicated (without systemic symptoms) or Complicated (systemic symptoms)? @ -Uncomplicated Side effects of treatment? @ -No Exacerbation, Progression, or Severe Exacerbation? @ -No Poses a threat to life or bodily function? How? (Chest pain, [place], [place], pneumonia, PE, COPD, DKA, ARF, appy, cholecystitis, CVA, Diverticulitis, Homicidal, Suicidal, threat to staff... and all critical care pts) @ -Unlikely - Lab Data Result diagrams: 03/27/25 00:15 03/27/25 00:15 Lab Results 03/27/25 03/27/25 03/27/25 Range/Units 00:15 00:15 00:15 WBC 9.96 (4.50-10.00) 10*3/uL RBC 4.84 (4.10-5.20) 10*6/uL Hgb 14.6 (12.0-15.0) g/dL Hct 42.5 (37.2-46.3) % MCV 87.8 (80.0-97.0) fL MCH 30.2 (27.0-32.0) pg MCHC 34.4 (32.0-37.0) g/dL Plt Count 227 (140-440) 10*3/uL MPV 9.4 L (9.5-12.2) fL Immature Gran % (Auto) 0.3 % Neutrophils % 92.6 % Lymphocytes % 2.9 % Monocytes % 2.9 % Eosinophils % 1.0 % Basophils % 0.3 % Immature Gran # 0.03 (0.00-0.04) 10*3/uL Neutrophils # 9.22 H (1.80-7.70) 10*3/uL Lymphocytes # 0.29 L (0.90-5.00) 10*3/uL Monocytes # 0.29 (0.20-1.00) 10*3/uL Eosinophils # 0.10 (0.04-0.35) 10*3/uL Basophils # 0.03 (0.00-0.10) 10*3/uL Sodium (137-145) mmol/L Potassium (3.5-5.1) mmol/L Chloride (98-107) mmol/L Carbon Dioxide (22-30) mmol/L Anion Gap mmol/L BUN (7-17) mg/dL Creatinine (0.52-1.04) mg/dL Est GFR (CKD-EPI)AfAm (>60 ml/min/1.73 sqM) Est GFR (CKD-EPI)NonAf (>60 ml/min/1.73 sqM) Glucose (74-99) mg/dL Plasma Lactic Acid Benjamin (0.7-2.0) mmol/L Calcium (8.4-10.2) mg/dL Total Bilirubin (0.2-1.3) mg/dL AST (14-36) U/L ALT (4-34) U/L Alkaline Phosphatase (38-126) U/L Total Protein (6.3-8.2) g/dL Albumin (3.5-5.0) g/dL Urine Color Yellow Urine Appearance Cloudy H (Clear) Urine pH 5.5 (5.0-8.0) Ur Specific [place] 1.024 (1.001-1.035) Urine Protein Trace H (Negative) Urine Glucose (UA) Negative (Negative) Urine Ketones 2+ H (Negative) Urine Blood Small H (Negative) Urine Nitrite Negative (Negative) Urine Bilirubin Negative (Negative) Urine Urobilinogen <2.0 (<2.0) mg/dL Ur Leukocyte Esterase Negative (Negative) Urine RBC 1 (0-5) /hpf Urine WBC 1 (0-5) /hpf Ur Squamous Epith Cells 3 (0-4) /hpf Urine Bacteria Rare H (None) /hpf Urine Mucus Many H (None) /hpf Urine HCG, Qual Not Detected (Not Detectd) Influenza Type A (PCR) (Not Detectd) Influenza Type B (PCR) (Not Detectd) RSV (PCR) (Not Detectd) SARS-CoV-2 (PCR) (Not Detectd) 03/27/25 03/27/25 03/27/25 Range/Units 00:15 00:15 00:35 WBC (4.50-10.00) 10*3/uL RBC (4.10-5.20) 10*6/uL Hgb (12.0-15.0) g/dL Hct (37.2-46.3) % MCV (80.0-97.0) fL MCH (27.0-32.0) pg MCHC (32.0-37.0) g/dL Plt Count (140-440) 10*3/uL MPV (9.5-12.2) fL Immature Gran % (Auto) % Neutrophils % % Lymphocytes % % Monocytes % % Eosinophils % % Basophils % % Immature Gran # (0.00-0.04) 10*3/uL Neutrophils # (1.80-7.70) 10*3/uL Lymphocytes # (0.90-5.00) 10*3/uL Monocytes # (0.20-1.00) 10*3/uL Eosinophils # (0.04-0.35) 10*3/uL Basophils # (0.00-0.10) 10*3/uL Sodium 140 (137-145) mmol/L Potassium 4.0 (3.5-5.1) mmol/L Chloride 109 H (98-107) mmol/L Carbon Dioxide 19 L (22-30) mmol/L Anion Gap 12 mmol/L BUN 13 (7-17) mg/dL Creatinine 0.58 (0.52-1.04) mg/dL Est GFR (CKD-EPI)AfAm >90 (>60 ml/min/1.73 sqM) Est GFR (CKD-EPI)NonAf >90 (>60 ml/min/1.73 sqM) Glucose 111 H (74-99) mg/dL Plasma Lactic Acid Benjamin 1.3 (0.7-2.0) mmol/L Calcium 9.5 (8.4-10.2) mg/dL Total Bilirubin 1.1 (0.2-1.3) mg/dL AST 21 (14-36) U/L ALT 14 (4-34) U/L Alkaline Phosphatase 53 (38-126) U/L Total Protein 7.7 (6.3-8.2) g/dL Albumin 4.8 (3.5-5.0) g/dL Urine Color Urine Appearance (Clear) Urine pH (5.0-8.0) Ur Specific [place] (1.001-1.035) Urine Protein (Negative) Urine Glucose (UA) (Negative) Urine Ketones (Negative) Urine Blood (Negative) Urine Nitrite (Negative) Urine Bilirubin (Negative) Urine Urobilinogen (<2.0) mg/dL Ur Leukocyte Esterase (Negative) Urine RBC (0-5) /hpf Urine WBC (0-5) /hpf Ur Squamous Epith Cells (0-4) /hpf Urine Bacteria (None) /hpf Urine Mucus (None) /hpf Urine HCG, Qual (Not Detectd) Influenza Type A (PCR) Not Detected (Not Detectd) Influenza Type B (PCR) Not Detected (Not Detectd) RSV (PCR) Not Detected (Not Detectd) SARS-CoV-2 (PCR) Not Detected (Not Detectd) - Radiology Data Radiology results: report reviewed, image reviewed Disposition Clinical Impression: Nausea vomiting and diarrhea Disposition: HOME SELF-CARE Condition: Stable Instructions (If sedation given, give patient instructions): Fever in Adults (ED) Additional Instructions: Zofran as prescribed for nausea. Continue [id number] ibuprofen and Tylenol for fever control. Follow-up with PCP. Return to the ER for any new or worsening concerns Prescriptions: Ondansetron Odt [Zofran Odt] 4 mg PO Q8HR PRN #10 tab PRN Reason: Nausea Is patient prescribed a controlled substance at d/c from ED?: No Referrals: Abraham Juan MD [Primary Care Provider] - 1-2 days Time of Disposition: 03:22
[2025-03-27] MEDS: ONDANSETRON 4 MG/2 ML VIAL IVP STA (00:06)
[2025-03-27] MEDS: ACETAMINOPHEN TAB 325 MG TAB PO STA (00:07)
[2025-03-27] MEDS: KETOROLAC 15 MG/ML 1 ML VIAL IVP STA (00:07)
[2025-03-27] MEDS: SODIUM CHLORIDE 0.9% 1,000 ML IV ONE (00:09)
[2025-03-27 00:36] LABS: Basophils # (A) 0.03 10*3/uL (0.00-0.10); Basophils % (A) 0.3 %; HCT 42.5 % (37.2-46.3); HGB 14.6 g/dL (12.0-15.0); Lymphocytes # (A) 0.29 10*3/uL (0.90-5.00); Lymphocytes % (A) 2.9 %; MCH 30.2 pg (27.0-32.0); MCHC 34.4 g/dL (32.0-37.0); MCV 87.8 fL (80.0-97.0); Mean Platelet Volume 9.4 fL (9.5-12.2); Monocytes # (A) 0.29 10*3/uL (0.20-1.00); Monocytes % (A) 2.9 %; Neutrophils # (A) 9.22 10*3/uL (1.80-7.70); Neutrophils % (A) 92.6 %; Platelet Count 227 10*3/uL (140-440); RBC 4.84 10*6/uL (4.10-5.20); RDW 12.2 % (11.5-14.5); WBC 9.96 10*3/uL (4.50-10.00)
[2025-03-27 00:41] LABS: Appearance,Urine Cloudy (Clear); Bacteria,Urine Rare /hpf; Bilirubin,Urine Negative (Negative); Blood,Urine Small (Negative); Color,Urine Yellow; Glucose,Urine (UA) Negative (Negative); Ketones,Urine 2+ (Negative); Leukocyte Esterase,Urine Negative (Negative); Mucus,Urine Many /hpf; Nitrite,Urine Negative (Negative); PH, Urine 5.5 (5.0-8.0); Protein,Urine Trace (Negative); RBC,Urine 1 /hpf (0-5); Specific Gravity,Urine 1.024 (1.001-1.035); Squamous Epithelial Cell,Urine 3 /hpf (0-4); Urobilinogen,Urine <2.0 mg/dL (<2.0); WBC,Urine 1 /hpf (0-5)
[2025-03-27 00:54] LABS: ALT 14 U/L (4-34); AST 21 U/L (14-36); African American GFR (CKD) >90 (>60 ml/min/1.73 sqM); Albumin 4.8 g/dL (3.5-5.0); Alkaline Phosphatase 53 U/L (38-126); Anion Gap 12 mmol/L; Blood Urea Nitrogen 13 mg/dL (7-17); Calcium 9.5 mg/dL (8.4-10.2); Carbon Dioxide 19 mmol/L (22-30); Chloride 109 mmol/L (98-107); Glucose 111 mg/dL (74-99); Non-African American GFR(CKD) >90 (>60 ml/min/1.73 sqM); Sodium 140 mmol/L (137-145); Total Bilirubin 1.1 mg/dL (0.2-1.3); Total Protein 7.7 g/dL (6.3-8.2)
[2025-03-27] MEDS: METOCLOPRAMIDE 5 MG/ML 2 ML VIAL IVP STA (03:08)
[2025-03-27 03:15] LABS: Influenza A Not Detected (Not Detectd); Influenza B Not Detected (Not Detectd); RSV Not Detected (Not Detectd)
--- NOTE | 2025-03-27 03:16 | XR ---
EXAM: XR Chest, 2 Views CLINICAL HISTORY: ITS.REASON XR Reason: fever TECHNIQUE: Frontal and lateral views of the chest. COMPARISON: No relevant prior studies available. FINDINGS: Lungs: No consolidation. 1.6 cm nodule in the right lower lobe Pleural space: No effusion. Heart: No cardiomegaly. Bones/joints: No acute findings. IMPRESSION: 1.6 cm nodule in the right lower lobe possibly the nipple. Recommend short-term follow-up within 3 months with nipple markers.
[2025-03-27] MEDS: ONDANSETRON 4 MG ODT STARTER PACK 2 TAB BTL PO STA (03:28)
[2025-03-27 03:31] VITALS: BP 107/61; PULSE 73; RESP 18; TEMP 98.5
== END 2025-03-27 03:39 | disposition home or self-care (01) ==
LOC: EC 23:31
DX: E86.0 Dehydration (principal); R11.2 Nausea with vomiting, unspecified; Z88.1 Allergy status to other antibiotic agents
CPT/HCPCS: 36415; 80053; 83605; 85025; 81001; 81025; 87636; 71046; 99284; 96374; 96375 ×2; 96361; J2765; J2405; J1885; S0119